=== PATIENT | male | born 1940 | race Caucasian/White ===

== ENCOUNTER 2020-10-14 15:21 | Outpatient (CLI) | payer MEDICARE, OTHER, SELFPAY ==
[2020-10-14 15:53] LABS: Alanine Aminotransferase 21 U/L (4-50); Aspartate Amino Transferase 30 U/L (17-59)
== END 2020-10-14 15:22 | disposition home or self-care (01) ==
LOC: ANHLAB 15:27
PROVIDERS: PCP Family Medicine; Visit Provider Podiatrist Foot & Ankle Surgery
DX: B35.1 Tinea unguium (principal)
CPT/HCPCS: 36415; 84450; 84460

== ENCOUNTER 2021-01-25 10:55 | Emergency (ER) | payer MEDICARE, OTHER, SELFPAY ==
[2021-01-25 10:59] VITALS: BP 168/88; PULSE 77; RESP 20; TEMP 36.6; O2SAT 99
[2021-01-25 11:05] VITALS: BP 168/88; PULSE 77; RESP 20; TEMP 36.6; O2SAT 99
--- NOTE | 2021-01-25 13:47 | ED.EYEPROB ---
HPI - Eye Problem General Chief complaint: Eye Problems Stated complaint: SCRATCHED EYE Time Seen by Provider: 01/25/21 11:12 Source: patient and RN notes reviewed Mode of arrival: ambulatory Limitations: no limitations History of Present Illness HPI Narrative: Patient presents today complaining of a red irritated eye and possible foreign body sensation when he woke up this morning. Denies vision changes, pain. He did not do anything yesterday that he remembers could have gotten into his eye. When he went to bed last night he did not feel anything in his eye. He does not wear contacts. He has tried flushing and eowo-lct-[id number] eyedrops without relief. chief complaint: eye redness and foreign body Related Data Home Medications Medication Instructions Recorded Confirmed carvedilol 01/25/21 lisinopril-hydrochlorothiazide tablet 01/25/21 warfarin 01/25/21 Allergies Allergy/AdvReac Type Severity Reaction Status Date / Time No Known Allergies Allergy Mild Verified 01/25/21 11:01 Review of Systems Review of Systems: Narrative: CONSTITUTIONAL: Denies body aches, fever, chills, or sweats. EYES: Denies visual changes, or discharge. + Irritation and slight redness with foreign body sensation to the right eye ENT: Denies rhinorrhea, congestion, sore throat, or otalgia. CARDIOVASCULAR: Denies chest pain, palpitations, or edema. RESPIRATORY: Denies cough or dyspnea. GASTROINTESTINAL: Denies abdominal pain, nausea, vomiting, or diarrhea. GENITOURINARY: Denies dysuria or hematuria. SKIN: Denies rash, itching, or wounds. MUSCULOSKELETAL: Denies back pain, joint pain, or myalgia. NEUROLOGIC: Denies headache, numbness, tingling, or weakness. PSYCH: Denies depression or anxiety. PMFSH Social History Social History Smoking status: Never smoker Second hand tobacco smoke exposure: No Alcohol intake: never Comments At time of signature, I have reviewed and agree with nursing past medical, surgical, social and family history unless otherwise noted. Please see nursing chart for further information. There is no relevant family history pertinent to the presenting complaint Exam Narrative: Exam Narrative: GENERAL: Well-appearing, well-nourished, and in no acute distress. HEAD: Normocephalic, atraumatic. EYES: EOMI. PERRL. Right eye: Very mildly injected. Large area of fluorescein uptake in the center of the pupil extending into the iris. This fluorescein uptake measures at least 1 cm across by approximately 0.5 cm vertically. See procedure note. Lids and lashes normal. See procedure note. Left eye normal ENT: Mucous membranes pink and moist. NECK: Normal AROM. CHEST: No respiratory distress. EXTREMITIES: Normal range of motion. No edema. SKIN: Warm, dry, no rash. Capillary refill normal. Normal skin turgor. NEURO: No focal deficits. Alert and oriented x3. Gait steady. PSYCH: Normal affect. No signs of depression or anxiety. Course Vital Signs Vital signs: Vital Signs Temperature 97.9 F 01/25/21 10:59 Pulse Rate 77 01/25/21 10:59 Respiratory Rate 20 01/25/21 10:59 Blood Pressure 168/88 H 01/25/21 10:59 Pulse Oximetry 99 01/25/21 10:59 Temperature 97.9 F 01/25/21 11:05 Pulse Rate 77 01/25/21 11:05 Respiratory Rate 20 01/25/21 11:05 Blood Pressure 168/88 H 01/25/21 11:05 Pulse Oximetry 99 01/25/21 11:05 Reviewed. Pt has been instructed to follow up with his PCP regarding his elevated blood pressure today. Procedures Other Procedure Procedure 1: Other Procedure: Right eye was anesthetized with 1 drop of tetracaine and anesthesia was achieved. The eye was flushed with eye wash. Lid was inverted and examined. Moistened Qtip was used to sweep underneath the upper eyelid with 0 foreign bodies resulting. Cornea was dyed with fluorescein and 1 large abrasions or ulcerations were noted in the center of the pupil. Pt tolerated procedure well. [facility] - Eye Probl
== END 2021-01-25 12:00 | disposition home or self-care (01) ==
PROVIDERS: Emergency Provider Nurse Practitioner; PCP Family Medicine
DX: H16.001 Unspecified corneal ulcer, right eye (principal); I48.91 Unspecified atrial fibrillation; I10 Essential (primary) hypertension; N40.0 Benign prostatic hyperplasia without lower urinary tract symptoms; Z96.643 Presence of artificial hip joint, bilateral; Z98.42 Cataract extraction status, left eye; Z98.41 Cataract extraction status, right eye
CPT/HCPCS: 99213; A9270; G0463

== ENCOUNTER 2021-03-03 14:42 | Outpatient (CLI) | payer MEDICARE, OTHER, SELFPAY ==
[2021-03-03 15:23] LABS: Alanine Aminotransferase 19 U/L (4-50); Aspartate Amino Transferase 29 U/L (17-59)
== END 2021-03-03 14:43 | disposition home or self-care (01) ==
PROVIDERS: PCP Family Medicine; Visit Provider Podiatrist Foot & Ankle Surgery
DX: B35.1 Tinea unguium (principal)
CPT/HCPCS: 36415; 84450; 84460

== ENCOUNTER 2021-03-25 10:48 | Outpatient (CLI) | payer MEDICARE, OTHER, SELFPAY ==
[2021-03-25 11:21] LABS: Alanine Aminotransferase 22 U/L (4-50); Albumin Level 3.9 g/dL (3.5-5.1); Alkaline Phosphatase 51 U/L (38-126); Anion Gap 7 mmol/L (8-16); Aspartate Amino Transferase 21 U/L (17-59); Bilirubin,Total 0.6 mg/dL (0.2-1.3); Blood Urea Nitrogen 20 mg/dL (9-20); Carbon Dioxide 31 mmol/L (22-30); Chloride 101 mmol/L (98-107); Estimated Glomerular Filt Rate > 60; Glucose 142 mg/dL (65-110); Potassium 4.2 mmol/L (3.4-5.0); Sodium 139 mmol/L (137-145); Uric Acid 8.1 mg/dL (3.5-8.5)
== END 2021-03-25 10:49 | disposition home or self-care (01) ==
LOC: ANHLAB 10:50
PROVIDERS: PCP Family Medicine; Visit Provider Podiatrist Foot & Ankle Surgery
DX: M10.9 Gout, unspecified (principal)
CPT/HCPCS: 36415; 80053; 84550

== ENCOUNTER 2021-05-17 09:37 | Outpatient (CLI) | payer MEDICARE, OTHER, SELFPAY ==
[2021-05-17 11:02] LABS: Prostate Specific Antigen 5.4 ng/mL (< OR = 4.0)
== END 2021-05-17 09:38 | disposition home or self-care (01) ==
LOC: ANHLAB 09:43
PROVIDERS: PCP Family Medicine
DX: Z12.5 Encounter for screening for malignant neoplasm of prostate (principal); R97.20 Elevated prostate specific antigen [PSA]
CPT/HCPCS: 36415; 84153; G0103

== ENCOUNTER 2021-12-06 11:38 | Outpatient (CLI) | payer MEDICARE, OTHER, SELFPAY ==
[2021-12-06 12:16] LABS: Basophils Absolute Auto 0.1 K/mm3 (0.0-0.1); Basophils Percent Auto 0.9 % (0.2-1.2); Eosinophils Absolute Auto 0.2 K/mm3 (0-0.3); Eosinophils Percent Auto 3.6 % (0-4.4); Hematocrit 41.7 % (42.0-52.0); Hemoglobin 13.9 g/dL (14.0-18.0); Immature Granulocyte Absolute 0.02 K/mm3 (0.00-0.031); Immature Granulocyte Percent A 0.3 % (0-0.5); Lymphocytes Absolute Auto 1.75 K/mm3 (0.9-3.2); Lymphocytes Percent Auto 27.3 % (18.3-44.2); Mean Corpuscular HGB Conc 33.3 g/dl (32-36); Mean Corpuscular Hemoglobin 30.2 pg (26-34); Mean Corpuscular Volume 90.7 fl (80-100); Mean Platelet Volume 11.7 fl (7.4-10.4); Monocytes Absolute Auto 0.8 K/mm3 (0.1-0.6); Monocytes Percent Auto 11.7 % (2.6-8.5); Neutrophils Absolute Auto 3.6 K/mm3 (1.3-6.7); Neutrophils Percent Auto 56.2 % (45.5-73.1); Platelet Count Result 172 k/mm3 (150-375); Red Cell Distribution Width 13.3 % (11.5-14.5); White Blood Count 6.4 K/mm3 (4.5-10.0)
[2021-12-06 12:32] LABS: Anion Gap 8 mmol/L (8-16); Blood Urea Nitrogen 15 mg/dL (9-20); Calcium 8.6 mg/dL (8.4-10.2); Carbon Dioxide 30 mmol/L (22-30); Chloride 102 mmol/L (98-107); Cholesterol 190 mg/dL (0-200); Estimated Glomerular Filt Rate > 60; Glucose 96 mg/dL (65-110); HDL Direct 35 mg/dL; Potassium 3.7 mmol/L (3.4-5.0); Sodium 140 mmol/L (137-145); Triglycerides 105 mg/dL (<150)
[2021-12-06 12:43] LABS: LDL Cholesterol Direct 99 mg/dL
== END 2021-12-06 11:39 | disposition home or self-care (01) ==
LOC: ANHLAB 11:42
PROVIDERS: PCP Family Medicine; Visit Provider Physician Assistant Medical
DX: I10 Essential (primary) hypertension (principal); Z13.220 Encounter for screening for lipoid disorders
CPT/HCPCS: 36415; 80048; 80061; 84443; 85025

== ENCOUNTER 2022-02-24 13:38 | Outpatient (CLI) | payer MEDICARE, OTHER, SELFPAY ==
[2022-02-24 13:58] LABS: Basophils Absolute Auto 0.1 K/mm3 (0.0-0.1); Eosinophils Absolute Auto 0.2 K/mm3 (0-0.3); Eosinophils Percent Auto 3.2 % (0-4.4); Hemoglobin 13.3 g/dL (14.0-18.0); Immature Granulocyte Absolute 0.03 K/mm3 (0.00-0.031); Immature Granulocyte Percent A 0.4 % (0-0.5); Lymphocytes Absolute Auto 2.36 K/mm3 (0.9-3.2); Lymphocytes Percent Auto 33.2 % (18.3-44.2); Mean Corpuscular HGB Conc 33.3 g/dl (32-36); Mean Corpuscular Hemoglobin 30.1 pg (26-34); Mean Corpuscular Volume 90.5 fl (80-100); Mean Platelet Volume 11.1 fl (7.4-10.4); Monocytes Absolute Auto 0.7 K/mm3 (0.1-0.6); Monocytes Percent Auto 10.4 % (2.6-8.5); Neutrophils Absolute Auto 3.7 K/mm3 (1.3-6.7); Neutrophils Percent Auto 51.8 % (45.5-73.1); Platelet Count Result 166 k/mm3 (150-375); Red Blood Count 4.42 M/mm3 (4.6-6.20); Red Cell Distribution Width 13.5 % (11.5-14.5); White Blood Count 7.1 K/mm3 (4.5-10.0)
== END 2022-02-24 13:39 | disposition home or self-care (01) ==
PROVIDERS: PCP Family Medicine; Visit Provider Physician Assistant Medical
DX: D64.9 Anemia, unspecified (principal)
CPT/HCPCS: 36415; 85025

== ENCOUNTER 2022-03-31 14:34 | Outpatient (CLI) | payer MEDICARE, OTHER, SELFPAY ==
[2022-03-31 15:27] LABS: Iron 77 ug/dL (49-181)
[2022-03-31 15:36] LABS: Percent Iron Saturation 19 % (20-50)
== END 2022-03-31 14:35 | disposition home or self-care (01) ==
LOC: ANHLAB 14:36
PROVIDERS: PCP Family Medicine; Visit Provider Physician Assistant Medical
DX: D64.9 Anemia, unspecified (principal)
CPT/HCPCS: 36415; 83540; 83550

== ENCOUNTER 2022-05-06 11:16 | Outpatient (CLI) | payer MEDICARE, OTHER, SELFPAY ==
[2022-05-06 15:25] LABS: Prostate Specific Antigen 6.4 ng/mL (< OR = 4.0)
== END 2022-05-06 11:17 | disposition home or self-care (01) ==
PROVIDERS: PCP Family Medicine; Referring Provider Urology; Visit Provider Urology
DX: Z12.5 Encounter for screening for malignant neoplasm of prostate (principal)
CPT/HCPCS: 36415; 84153; G0103

== ENCOUNTER 2022-09-23 14:07 | Emergency (ER) | payer MEDICARE, OTHER, SELFPAY ==
[2022-09-23 14:19] VITALS: BP 121/61; PULSE 91; RESP 16; TEMP 37; O2SAT 98
--- NOTE | 2022-09-23 14:41 | ED.GENADULT ---
HPI - General Adult General Chief complaint: Upper Respiratory Infection Stated complaint: cov positive Time Seen by Provider: 09/23/22 14:30 Source: patient Mode of arrival: ambulatory Limitations: no limitations History of Present Illness HPI narrative: Patient presents today complaining of body aches, fatigue, rhinorrhea, and decreased appetite since yesterday. Denies fever, cough, congestion, or any additional symptoms. He tested positive for COVID-19 at home today. He has been taking Tylenol with some relief. Takes Coumadin for AFib. He has been vaccinated for COVID-19. Related Data Home Medications Medication Instructions Recorded Confirmed carvedilol 25 mg tablet 25 mg PO BID 01/25/21 09/23/22 warfarin 3 mg tablet 3 mg PO DAILY 01/25/21 09/23/22 lisinopril 20 2 tablet PO DAILY 11/30/21 09/23/22 mg-hydrochlorothiazide 12.5 mg tablet Allergies Allergy/AdvReac Type Severity Reaction Status Date / Time No Known Allergies Allergy Mild Verified 09/23/22 14:45 Review of Systems Review of Systems: CONSTITUTIONAL: Denies body aches, fever, chills, or sweats.+ fatigue, body aches EYES: Denies visual changes, redness, or discharge. ENT: Denies congestion, sore throat, or otalgia.+ rhinorrhea CARDIOVASCULAR: Denies chest pain, palpitations, or edema. RESPIRATORY: Denies cough or dyspnea. GASTROINTESTINAL: Denies abdominal pain, nausea, vomiting, or diarrhea.+ decreased appetite GENITOURINARY: Denies dysuria or hematuria. SKIN: Denies rash, itching, or wounds. MUSCULOSKELETAL: Denies back pain, joint pain, or myalgia. NEUROLOGIC: Denies headache, numbness, tingling, or weakness. PSYCH: Denies depression or anxiety. [facility] Past Medical History Medical History BMI greater than 30 Surgical History Surgical History History of hernia surgery History of hip replacement Family History Family History Father No problems noted. 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 Please see nursing chart for further information. There is no relevant family history pertinent to the presenting complaint Exam Narrative: GENERAL: Well-appearing, well-nourished, and in no acute distress. HEAD: Normocephalic, atraumatic. EYES: EOMI. No redness or drainage. Conjunctivae normal. ENT: Mucous membranes pink and moist. Nares clear. No rhinorrhea. TMs normal bilaterally. Throat normal. Uvula midline. NECK: Normal AROM. Supple. No lymphadenopathy. CHEST: No respiratory distress. Clear to auscultation. HEART: Regular rate and rhythm. No murmur appreciated. Normal peripheral pulses. EXTREMITIES: Normal range of motion. No edema. SKIN: Warm, dry, no rash. Capillary refill normal. Normal skin turgor. NEURO: No focal deficits. Alert and oriented x3. Gait steady. PSYCH: Normal affect. No signs of depression or anxiety. Course Course Level of Care: Express Care Visit Vital Signs Vital signs: Vital Signs Temperature 98.6 F 09/23/22 14:19 Pulse Rate 91 09/23/22 14:19 Respiratory Rate 16 09/23/22 14:19 Blood Pressure 121/61 09/23/22 14:19 Pulse Oximetry 98 09/23/22 14:19 Temperature 98.6 F 09/23/22 14:19
== END 2022-09-23 14:51 | disposition home or self-care (01) ==
PROVIDERS: Emergency Provider Nurse Practitioner
DX: U07.1 COVID-19 (principal); I48.91 Unspecified atrial fibrillation; Z79.01 Long term (current) use of anticoagulants; N40.0 Benign prostatic hyperplasia without lower urinary tract symptoms; Z96.643 Presence of artificial hip joint, bilateral; Z98.42 Cataract extraction status, left eye; Z98.41 Cataract extraction status, right eye
CPT/HCPCS: 99213; G0463

== ENCOUNTER 2023-05-09 10:43 | Outpatient (CLI) | payer MEDICARE, OTHER, SELFPAY ==
[2023-05-09 12:01] LABS: Prostate Specific Antigen 6.4 ng/mL (< OR = 4.0)
== END 2023-05-09 10:44 | disposition home or self-care (01) ==
PROVIDERS: PCP Family Medicine
DX: R97.20 Elevated prostate specific antigen [PSA] (principal)
CPT/HCPCS: 36415; 84153

== ENCOUNTER 2024-01-12 09:43 | Outpatient (CLI) | payer MEDICARE, OTHER, SELFPAY ==
[2024-01-12 10:18] LABS: Basophils Absolute Auto 0.1 K/mm3 (0.0-0.1); Basophils Percent Auto 0.8 % (0.2-1.2); Eosinophils Absolute Auto 0.2 K/mm3 (0-0.3); Eosinophils Percent Auto 2.4 % (0-4.4); Hematocrit 35.1 % (42.0-52.0); Hemoglobin 11.4 g/dL (14.0-18.0); Immature Granulocyte Absolute 0.02 K/mm3 (0.00-0.031); Immature Granulocyte Percent A 0.3 % (0-0.5); Lymphocytes Absolute Auto 1.61 K/mm3 (0.9-3.2); Lymphocytes Percent Auto 22.7 % (18.3-44.2); Mean Corpuscular HGB Conc 32.5 g/dl (32-36); Mean Corpuscular Hemoglobin 29.8 pg (26-34); Mean Corpuscular Volume 91.9 fl (80-100); Mean Platelet Volume 11.6 fl (7.4-10.4); Monocytes Absolute Auto 0.7 K/mm3 (0.1-0.6); Monocytes Percent Auto 10.2 % (2.6-8.5); Neutrophils Absolute Auto 4.5 K/mm3 (1.3-6.7); Neutrophils Percent Auto 63.6 % (45.5-73.1); Platelet Count Result 185 k/mm3 (150-375); Red Blood Count 3.82 M/mm3 (4.6-6.20); Red Cell Distribution Width 13.7 % (11.5-14.5); White Blood Count 7.1 K/mm3 (4.5-10.0)
[2024-01-12 10:22] LABS: Alanine Aminotransferase 17 U/L (6-50); Albumin Level 4.2 g/dL (3.5-5.1); Alkaline Phosphatase 54 U/L (38-126); Anion Gap 6 mmol/L (4-12); Aspartate Amino Transferase 23 U/L (17-59); Bilirubin,Total 0.6 mg/dL (0.2-1.3); Blood Urea Nitrogen 22 mg/dL (9-20); Calcium 8.7 mg/dL (8.4-10.2); Carbon Dioxide 28 mmol/L (22-30); Chloride 107 mmol/L (98-107); Cholesterol 145 mg/dL (0-200); Estimated Glomerular Filt Rate > 60; Glucose 120 mg/dL (65-110); HDL Direct 36 mg/dL; Potassium 3.7 mmol/L (3.4-5.0); Sodium 141 mmol/L (137-145); Triglycerides 104 mg/dL (<150); Uric Acid 9.7 mg/dL (3.5-8.5)
[2024-01-12 10:32] LABS: LDL Cholesterol Direct 89 mg/dL
== END 2024-01-12 09:44 | disposition home or self-care (01) ==
PROVIDERS: PCP Family Medicine; Visit Provider Nurse Practitioner Adult Health
DX: M10.9 Gout, unspecified (principal); Z13.29 Encounter for screening for other suspected endocrine disorder; D64.9 Anemia, unspecified; I10 Essential (primary) hypertension
CPT/HCPCS: 36415; 80053; 80061; 84443; 84550; 85025

== ENCOUNTER 2024-01-24 16:39 | Outpatient (CLI) | payer MEDICARE, OTHER, SELFPAY ==
[2024-01-24 17:33] LABS: Basophils Absolute Auto 0.1 K/mm3 (0.0-0.1); Basophils Percent Auto 0.7 % (0.2-1.2); Eosinophils Absolute Auto 0.2 K/mm3 (0-0.3); Eosinophils Percent Auto 2.4 % (0-4.4); Hematocrit 35.9 % (42.0-52.0); Hemoglobin 11.2 g/dL (14.0-18.0); Immature Granulocyte Absolute 0.03 K/mm3 (0.00-0.031); Immature Granulocyte Percent A 0.4 % (0-0.5); Lymphocytes Absolute Auto 1.71 K/mm3 (0.9-3.2); Lymphocytes Percent Auto 20.8 % (18.3-44.2); Mean Corpuscular HGB Conc 31.2 g/dl (32-36); Mean Corpuscular Hemoglobin 29.1 pg (26-34); Mean Corpuscular Volume 93.2 fl (80-100); Mean Platelet Volume 11.4 fl (7.4-10.4); Monocytes Absolute Auto 0.7 K/mm3 (0.1-0.6); Monocytes Percent Auto 8.4 % (2.6-8.5); Neutrophils Absolute Auto 5.5 K/mm3 (1.3-6.7); Neutrophils Percent Auto 67.3 % (45.5-73.1); Platelet Count Result 208 k/mm3 (150-375); Red Blood Count 3.85 M/mm3 (4.6-6.20); Red Cell Distribution Width 13.8 % (11.5-14.5); White Blood Count 8.2 K/mm3 (4.5-10.0)
[2024-01-24 17:39] LABS: Uric Acid 9.9 mg/dL (3.5-8.5)
[2024-01-24 18:42] LABS: Iron 58 ug/dL (49-181)
[2024-01-24 18:53] LABS: Percent Iron Saturation 14 % (20-50)
== END 2024-01-24 16:40 | disposition home or self-care (01) ==
PROVIDERS: PCP Family Medicine; Visit Provider Nurse Practitioner Adult Health
DX: D64.9 Anemia, unspecified (principal); M10.9 Gout, unspecified
CPT/HCPCS: 36415; 83540; 83550; 84550; 85025

== ENCOUNTER 2024-02-15 12:56 | Outpatient (CLI) | payer MEDICARE, OTHER, SELFPAY ==
[2024-02-15 13:31] LABS: Uric Acid 8.9 mg/dL (3.5-8.5)
== END 2024-02-15 12:57 | disposition home or self-care (01) ==
LOC: ANHLAB 12:58
PROVIDERS: PCP Family Medicine; Visit Provider Nurse Practitioner Adult Health
DX: M10.9 Gout, unspecified (principal)
CPT/HCPCS: 36415; 84550

== ENCOUNTER 2024-05-27 11:29 | Outpatient (CLI) | payer MEDICARE, OTHER, SELFPAY ==
[2024-05-27 12:32] LABS: Prostate Specific Antigen 6.2 ng/mL (< OR = 4.0)
== END 2024-05-27 11:30 | disposition home or self-care (01) ==
PROVIDERS: PCP Family Medicine; Visit Provider Urology
DX: R97.20 Elevated prostate specific antigen [PSA] (principal)
CPT/HCPCS: 36415; 84153

== ENCOUNTER 2024-11-04 13:46 | Outpatient (CLI) | payer MEDICARE, OTHER, SELFPAY ==
--- NOTE | ~2024-11-04 | XR_ITS ---
EXAMINATION: XR foot RT 2V DATE: 11/04/2024 14:20 INDICATION: Right foot pain. Gout. TECHNIQUE: 2 views of right foot were obtained. COMPARISON: None. FINDINGS: Alignment is normal. No fracture. There is moderate osteoarthritis of first metatarsophalan geal joint and mild osteoarthritis of some of the interphalangeal joints and midfoot joints. There is moderate osteoarthritis of second and third distal interphalangeal joints. There is an enthesophyte at plantar aspect of calcaneal tuberosity. IMPRESSION: 1. Polyarticular osteoarthritis. Reviewed, dictated and finalized at location B.
[2024-11-04 14:42] LABS: Uric Acid 8.8 mg/dL (3.5-8.5)
--- OUTSIDE RECORDS SUMMARY | 2024-11-04 16:00 | XMS_ITS | Referral Summary ---
Author Organization [facility] [place] Address [address] [place] [address] Care Team Providers Care Certified Solid Waste Facility Operator Name Role Phone Chalo Barrera MD Primary Care Provider [phone] Source Comments [facility],non-owned Affiliates and Associated Physician Practices is amultiple site organization consisting of ambulatory clinics and hospital sitesin [place], [place], [place] and [place]. This disclosure is being madepursuant to the Care Everywhere program and may not contain all information available regarding this patient. Last updated 18.[facility] [place] Allergies No known active allergies Medications * Be aware that medications may not be up to date on this document. Alwaysverify current medications with the patient. Medication Sig Dispensed Refills Start Date End Date Status carvedilol (COREG) 25 MG tablet CARVEDILOL 25 MG ORAL TABLET 08/12/2019 Active lisinopril-hydroCHL OROthiazide (PRINZIDE; ZESTORETIC) 20-12.5 MG tablet LISINOPRIL-HYDROCHL OROTHIAZIDE 20-12.5 MG ORAL TABLET 08/09/2019 Active HYDROcodone-acetami nophen (NORCO) 5-325 MG tablet Take 1 (one) tablet to 2 (two) tablets by mouth every 6 hours as needed for Pain 30 tablet 06/10/2021 Active Additional Information Patient not taking.Reported on 06/24/2021 warfarin (COUMADIN) 3 MG tablet 06/14/2021 Active Active Problems Problem Noted Date Diagnosed Date Right inguinal hernia 06/10/2021 Immunizations Name Administration Dates Next Due Covid Pfizer primary monovalent 12+ yr 0.3mL Pur ple cap 05/18/2021 Social History Tobacco Use Types Packs/Day Years Used Date Smoking Tobacco: Never Smokeless Tobacco: Never Tobacco Cessation:Counseling Given: No Alcohol Use Standard Drinks/Week Comments Yes 0 (1 standard drink = 0.6 oz pur e alcohol) occ Sex and Gender Information Value Date Recorded Sex Assigned at Not on file Gender Identity Male 12/27/2020 11:02 AM CDT Sexual Orientation Not on file Last Filed Vital Signs Vital Sign Reading Time Taken Comments Blood Pressure 157/98 06/10/2021 2:15 PM CDT Pulse 68 06/10/2021 2:15 PM CDT Temperature 36.8 C (98.2 F) 06/10/2021 12:45 PM CDT Respiratory Rate 18 06/10/2021 2:15 PM CDT Oxygen Saturation 98% 06/10/2021 2:15 PM CDT Inhaled Oxygen Concentration - - Weight 93.4 kg (206 lb) 06/24/2021 9:55 AM CDT Height 180.3 cm (5' 11 ) 06/24/2021 9:55 AM CDT Body Mass Index 28.73 06/24/2021 9:55 AM CDT Plan of Treatment Not on file Medical Devices Implanted Type Area Business Development Officer Device Identifier Shelf Expiration Date Model / Serial / Lot Plug Srg 1.6in Groin Mfl Nabsb Prfx Implanted:Qty: 1 on 06/10/2021 by Joshua Vanegas MD at [facility] Mesh Right: Groin [employer] 01/22/2025 [id number] / / [id number] Care Teams Certified Solid Waste Facility Operator Relationship Specialty Start Date End Date Chalo Barrera MD [address] [place] [address] PCP - General Family Medicine 05/25/21
--- OUTSIDE RECORDS SUMMARY | 2024-11-04 16:00 | XMS_ITS | Clinical Summary ---
Author Organization [facility] Address [address] [place] [id number] Care Team Providers Care Hyperion Administrator Name Role Phone Chalo Barrera MD Primary Care Provider [phone] Allergies Active Allergy Reactions Criticality Noted Date Comments Venom-Honey Bee Swelling Medium 12/16/2022 Medications omeprazole (PriLOSEC) 20 mg capsule Take 2 capsules (40 mg total) by mouth daily 30 capsule 03/14/2021 Active oxyCODONE-aceta minophen (PERCOCET) 5-325 mg per tabletIndicatio ns:Pain Take 1 tablet by mouth every 6 (six) hours as needed for pain (1 tablet for mild to moderate pain or 2 tablets for severe pain) for up to 20 doses MAY CAUSE SEDATION . TAKE IT ONLY WHEN AT HOME. 20 tablet 03/14/2021 Active cephalexin (KEFLEX) 500 mg capsuleIndicati ons:Upper Respiratory/DARRELL NT Infection Take 1 capsule (500 mg total) by mouth 2 (two) times a day 14 capsule 12/12/2022 Active loratadine (CLARITIN) 10 mg tabletIndicatio ns:Allergic Rhinitis Take 1 tablet (10 mg total) by mouth daily 30 tablet 12/12/2022 Active carvediloL (COREG) 25 mg tablet 12/13/2022 Active lisinopril-hydr oCHLOROthiazide (ZESTORETIC) 20-12.5 mg per tablet 12/13/2022 Active warfarin (COUMADIN) 3 mg tablet TAKE 1 TABLET BY MOUTH ONCE DAILY IN THE EVENING EXCEPT ON SUNDAYS TAKE 1 1/2 (ONE-HALF) TABLETS 11/18/2022 Active Active Problems Problem Noted Date Diagnosed Date Abnormal electrocardiogram (ECG) (EKG) 12/12/2022 Essential (primary) hypertension 12/12/2022 12/12/2022 Hypertensive heart disease without heart failure 12/12/2022 12/12/2022 Aortic stenosis, mild 09/20/2021 12/12/2022 Right inguinal hernia 06/10/2021 12/12/2022 Osteoarthritis of hip 11/17/2015 Need for prophylactic antibiotic 11/17/2015 Osteoarthritis of left hip 03/20/2015 Cardiomegaly 04/19/2012 12/12/2022 Unspecified atrial fibrillation 08/28/1959 12/12/2022 Medical History Medical History Date Comments Hypertension Family History Medical History Relation Name Comments Cancer Brother Family history of malignant neoplasm - (Added by TW Conv) Cancer Mother Family history of malignant neoplasm - (Added by TW Conv) Diabetes Mother Family history of diabetes mellitus - (Added by TW Conv) Stroke Mother Family history of cerebrovascular accident - (Added by TW Conv) Relation Name Status Comments Brother Mother Social History Tobacco Use Types Packs/Day Years Used Date Smoking Tobacco: Never Tobacco Cessation:Counseling Given: Not Answered Personal Safety Answer Date Recorded Getting School Help Needed Not on file 01/27 Sex and Gender Information Value Date Recorded Sex Assigned at Not on file Legal Sex Male 11:09 AM 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 OFFICER Gender Identity Not on file Sexual Orientation Not on file Obstetrics History Last Filed Vital Signs Vital Sign Reading Time Taken Comments Blood Pressure 154/76 12/12/2022 2:15 PM CDT Pulse 85 12/12/2022 2:15 PM CDT Temperature 37 C (98.6 F) 12/12/2022 1:35 PM CDT Respiratory Rate 12 12/12/2022 2:15 PM CDT Oxygen Saturation 98% 12/12/2022 2:15 PM CDT Inhaled Oxygen Concentration - - Weight 102.2 kg (225 lb 3.2 oz) 12/16/2022 1:16 PM CDT Height 180.3 cm (5' 11 ) 12/16/2022 1:16 PM CDT Body Mass Index 31.41 12/16/2022 1:16 PM CDT Plan of Treatment Health Maintenance Due Date Last Done Comments Depression Screening 1942 Fall Risk Assessment 1942 DTaP/Tdap/Td Vaccine (1 - Tdap) 1953 Hepatitis B Screening 01/30/1960 Zoster Vaccine (1 of 2) 01/30/1992 Well Visit 65+ 2007 Influenza Vaccine (#1) 2024 0, 06/28/2019, 05/31/2018, Additional history exists Pneumococcal vaccine 65+ Completed 05/31/2018, 04/28 Insurance [employer] [place] [address] [employer] Member Subscriber Plan / Payer ( fective 2021-Present) Name:Gaston Oh Relation to Subscriber:Self Name:Gaston Oh Payer ID:[id number] Type:COMMERCIAL Address: [address] [place] MEDICARE MEDICARE [employer] [facility] [employer] Member Subscriber Plan / Payer (Ef fective 2017-Present) Name:Gaston Oh R Relation to Subscriber:Self Name:Gaston Oh Tony Payer ID:[id number] Type:COMMERCIAL Address: [address] [place] Care Teams Hyperion Administrator Relationship Specialty Start Date End Date Chalo Barrera MD PCP - General Family Medicine 12/12/22
--- OUTSIDE RECORDS SUMMARY | 2024-11-04 16:00 | XMS_ITS | Patient Health Summary ---
Author Organization [facility] Address [address] [place] [address] Care Team Providers Care House Wirer Helper Name Role Phone Chalo Barrera MD Primary Care Provider [phone] Note from [facility],non-owned Affiliates and Associated Physician Practices is amultiple site organization consisting of ambulatory clinics and hospital sitesin [place], [place], [place] and [place]. This disclosure is being madepursuant to the Care Everywhere program and may not contain all information available regarding this patient. Last updated 18.[facility] Allergies No known active allergies Medications * Be aware that medications may not be up to date on this document. Alwaysverify current medications with the patient. * carvedilol (COREG) 25 MG tablet(Started 08/12/2019) CARVEDILOL 25 MG ORAL TABLET * lisinopril-hydroCHLOROthiazide (PRINZIDE; ZESTORETIC) 20-12.5 MG tablet (Started 08/09/2019) LISINOPRIL-HYDROCHLOROTHIAZIDE 20-12.5 MG ORAL TABLET * HYDROcodone-acetaminophen (NORCO) 5-325 MG tablet(Started 06/10/2021) Take 1 (one) tablet to 2 (two) tablets by mouth every 6 hours as needed for Pain * warfarin (COUMADIN) 3 MG tablet(Started 06/14/2021) Active Problems Problem Noted Date Diagnosed Date Right inguinal hernia 06/10/2021 Immunizations * Covid Pfizer primary monovalent 12+ yr 0.3mL Purple cap(Given 05/18/2021) Social History Tobacco Use Types Packs/Day Years [...] Mass Index 28.73 06/24/2021 9:55 AM CDT Medical Devices Implanted Type Area Manager Client Service Device Identifier Shelf Expiration Date Model / Serial / Lot Plug Srg 1.6in Groin Mfl Nabsb Prfx Implanted:Qty: 1 on 06/10/2021 by Joshua Vanegas MD at [facility] Mesh Right: Groin [employer] 01/22/2025 [id number] / / [id number] Procedures * ENDOTRACHEAL TUBE NOTE(Performed 06/10/2021) * REPAIR INGUINAL HERNIA(Performed 06/10/2021) * EKG 12-LEAD(Performed 06/10/2021) Performed for Preop examination * PT-INR(Performed 06/10/2021) Performed for Preop examination * BASIC METABOLIC PANEL (CALCIUM TOTAL)(Performed 06/10/2021) Performed for Preop examination * STREP A SCREEN - POINT OF CARE (AMB) STL(Performed 12/27/2020) Performed for Acute pharyngitis, unspecified etiology * CULTURE RESPIRATORY UPPER(Performed 12/27/2020) Performed for Acute pharyngitis, unspecified etiology * DERMATOPATHOLOGY(Performed 08/03/2017) * DERMATOPATHOLOGY(Performed 12/21/2016) * DERMATOPATHOLOGY(Performed 04/13/2016) * DERMATOPATHOLOGY(Performed 01/12/2012) Results * ETT LINE PERFORMABLE (06/10/2021 11:44 AM CDT) Lory Rendon APRN-FLOOR NURSE - 06/10/2021 11:44 AM CDT Lory Montoya APRN-CRNA 06/10/2021 11:46 AM Endotracheal Tube Placement: Patient Location: OR. Intubation Event Date/Time: 06/10/2021 11:38 AM Procedure: intubation (76053). Procedure Section: Sedation: under general anesthesia. Indications for Airway Management: anesthesia Induction: standard IV Patient Position: sniffing Mask Ventilation: easy with oral airway. Blade Type: Sean Blade Size: 4 Laryngoscopy View: grade 1 (full cords) Intubation Adjuncts: stylet Tube: endotracheal tube Placement: oral Tube type: cuff - inflated Tube Size (FR): 8 Depth of Insertion (CM): 23 Measured From: lips Cuff volume (mL): 10 Cuff Inflated With: air Number of Attempts: 1. Placement Verified By: bilateral breath sounds, direct visualization, chest auscultation and CO2 monitor Tube secured with: adhesive tape. Dentition unchanged? Yes Difficult Airway? No. Procedure Start Time: 06/10/2021 11:38 AM. Procedure End Time: 06/10/2021 11:46 AM. Procedure Total Time: 8.03 minutes. Staff Section Anesthesia Provider: Lory Montoya APRN-CRNA, Performed the procedure Carlos Neff MD GENERAL ANESTHESIA O RDERABLES * EKG 12-LEAD (06/10/2021 9:24 AM CDT) Ventricular Rate 74 BPM [facility] Atrial Rate 108 BPM [facility] QRS Duration ms 142 ms [facility] Q-T Interval ms 444 ms [facility] QTC Calculation (Bezet) 492 ms [facility] Calculated R [place] -55 degrees [facility] Calculated T [place] -30 degrees [facility] Interpretation EKG Atrial fibrillation Right bundle branch block Left anterior fascicular block Bifascicular block Abnormal ECG When compared with ECG of 21-MAY-2008 07:39, Vent. rate has decreased BY 55 BPM Confirmed by RANCHO MARTINES, GABRIEL ALFONSO ([id number]) on 06/10/2021 3:29:31 PM [facility] 06/10/2021 9:24 AM CDT 06/10/2021 3:29 PM CDT Yakelin Mercado DO ECG ORDERABLES Performing Organization Address [facility] Co de Phone Number [facility] * PT-INR (06/10/2021 9:23 AM CDT) PT 13.8 12.1 - 14.8 sec 06/10/2021 9:55 AM CDT [facility] INR 1.1 0.9 - 1.1 06/10/2021 9:55 AM CDT [facility] Blood BLOOD SPECIMEN / Unknown Venipuncture / Unknown 06/10/2021 9:23 AM CDT 06/10/2021 9:43 AM CDT Narrative [facility] - 06/10/2021 9:55 AM CDT Conventional Warfarin Anticoagulant Therapy: INR Reference Range: 2.0-3.0 Intensive Warfarin Anticoagulant Therapy: INR Reference Range: 2.5-3.5 Yakelin Mercado DO LAB - COAGULATION OR DERABLES Performing Organization Address [facility] de Phone Number [facility] [address] [id number] * (ABNORMAL) BASIC METABOLIC PANEL (CALCIUM TOTAL) (06/10/2021 9:23 AM CDT) Glucose 124(H) 70 - 105 mg/dL 06/10/2021 9:59 AM CDT [facility] Sodium 141 136 - 145 mmol/L 06/10/2021 9:59 AM CDT [facility] Potassium 3.5 3.5 - 5.1 mmol/L 06/10/2021 9:59 AM CDT [facility] Chloride 103 98 - 107 mmol/L 06/10/2021 9:59 AM CDT [facility] CO2 26 23 - 31 mmol/L 06/10/2021 9:59 AM CDT [facility] Calcium 9.3 8.4 - 10.4 mg/dL 06/10/2021 9:59 AM CDT [facility] Anion Gap 12 8 - 18 mmol/L 06/10/2021 9:59 AM CDT [facility] BUN 13 8.4 - 25.7 mg/dL 06/10/2021 9:59 AM CDT [facility] Creatinine 1.00 0.72 - 1.25 mg/dL 06/10/2021 9:59 AM CDT [facility] eGFR by MDRD >60 mL/min/1.7 3m2 06/10/2021 9:59 AM CDT [facility] eGFR by MDRD >60 mL/min/1.7 3m2 06/10/2021 9:59 AM CDT [facility] Blood BLOOD SPECIMEN / Unknown Venipuncture / Unknown 06/10/2021 9:23 AM CDT 06/10/2021 9:43 AM CDT Yakelin Mercado DO LAB - CHEMISTRY DANNY GRAY [facility] [address] [place] [address] * STREP A SCREEN - POINT OF CARE (AMB) STL (12/27/2020 2:07 PM CDT) Strep A Rapid POCT Negative Negative [facility] Strep A Internal Control Present [facility] Lot # [id number] [facility] Expiration Date 08 27 2021 [facility] Throat ENTIRE THROAT (SURFACE REGION OF NECK) / Unknown 12/27/2020 2:07 PM CDT Mae Simmons APRN-RAIL TRANSPORTATION OPERATOR LAB - POINT OF CA RE ORDERABLES [facility] [address] [phone] * CULTURE RESPIRATORY UPPER (12/27/2020 2:06 PM CDT) Upper Respiratory Culture Final report [facility] INSURANCE BILL Result 1 [facility] INSURANCE BILL Comment:Routine respiratory jayden Microbiology ENTIRE THROAT (SURFACE REGION OF NECK) / Unknown 12/27/2020 2:06 PM CDT 12/28/2020 Narrative Resulting Agency Comment Lab Testing performed at: [facility] [place] [address] [id number] Mae Simmons APRN-RAIL TRANSPORTATION OPERATOR LAB - MICROBIOLOG Y ORDERABLES [facility] INSURANCE BILL [address] [place] [address] * PATHOLOGY TISSUE FOR DERMATOLOGY (08/03/2017 12:00 AM [employer]) Only the most recent of4 resultswithin the time period is included. Result CASE: [id number] PATIENT: GASTON OH PATHOLOGIC DIAGNOSIS: Sternum: LICHEN PLANUS-LIKE KERATOSIS (BENIGN LICHENOID KERATOSIS) NOT PRESENT AT SAMPLED MARGIN CLINICAL DATA: R/O BCC. Check margins. GROSS DESCRIPTION: Received is one formalin filled container labeled with the patients name and designated upper midline sternum. The specimen consists of a curettage desiccation measuring [id number]. The margin is inked green. Jar 0. MICROSCOPIC DESCRIPTION: The epidermis is mildly acanthotic. There is a lichenoid infiltrate with vacuolar changes of basilar keratinocytes and scattered necrotic keratinocytes. This lesion is not present at the sampled margin of the specimen. Electronically signed out by Chioma Rodas M.D. 08/07/2017 1:16:27PM [facility] Comment: Performed at: Dermatopathology Laboratory [facility] - Department of Dermatology [address] [place] [address] [place] [address] Phone number: [phone] FAX: [phone] 08/03/2017 08/04/2017 Stephen Arnett MD LAB - PATHOLOGY/CYTO LOGY ORDERABLES Performing Organization Address City/[facility]/ZIP Co de Phone Number [facility] [address] [place] [address]. 5th Floor Lab [address] [phone] Care Teams House Wirer Helper Relationship Specialty Start Date End Date Chalo Barrera MD [address] [place] [address] PCP - General Family Medicine 05/25/21
--- OUTSIDE RECORDS SUMMARY | 2024-11-04 16:00 | XMS_ITS | Clinical Summary ---
Author Organization [facility] Address [address] [place] [address] Care Team Providers Care Upper Leather Cutter Name Role Phone Chalo Barrera MD Primary Care Provider [phone] Source Comments [facility],non-owned Affiliates and Associated Physician Practices is amultiple site organization consisting of ambulatory clinics and hospital sitesin [place], [place], [place]. This disclosure is being madepursuant to the Care Everywhere program and may not contain all information available regarding this patient. Last updated 18.[facility] Allergies No known active allergies Medications * [...] 12+ yr 0.3mL Pur ple cap 05/18/2021 Family History Medical History Relation Name Comments Diabetes - Type 2 Father Relation Name Status Comments Father Social History Tobacco Use Types Packs/Day Years [...] 06/24/2021 9:55 AM CDT Plan of Treatment Health Maintenance Due Date Last Done Comments MEDICARE AWV 12 MONTHS 1942 DTAP/TDAP/TD VACCINES (1 - Tdap) 1961 PNEUMOCOCCAL VACCINE 50+ (1 of 1 - PCV) 01/30/1992 ZOSTER VACCINE (1 of 2) 01/30/1992 Respiratory Syncytial Virus (RSV) Vaccine Pt: or over 60 yrs (1 - 1-dose 75+ series) 2017 COVID-19 VACCINE (3 - 2023-2 5 season) 2024 06/08/2021, 05/18/2021 INFLUENZA VACCINE (#1) 2024 , 06/03/2020 DEPRESSION SCREENING 08/28/2024 HEPATITIS B VACCINE Aged Out No longe r eligible based on patient's age to complete this topic HIB VACCINE Aged Out No longer eligi ble based on patient's age to complete this topic HPV VACCINE Aged Out No longer eligi ble based on patient's age to complete this topic MENINGOCOCCAL (Group B) VACCINE Aged Out No longer eligible b ased on patient's age to complete this topic MENINGOCOCCAL VACCINE Aged Out No dawn kamar eligible based on patient's age to complete this topic Medical Devices Implanted Type Area Loose Hand Packer Device Identifier Shelf Expiration Date Model / Serial / Lot Plug Srg 1.6in Kenia Mfl Nabsb Prfx Implanted:Qty: 1 on 06/10/2021 by Joshua Vanegas MD at [facility] Mesh Right: [employer] 01/22/2025 [id number] / / [id number] Care Teams Upper Leather Cutter Relationship Specialty Start Date End Date Chalo Barrera MD [address] [place] [address] PCP - General Family Medicine 05/25/21
--- OUTSIDE RECORDS SUMMARY | 2024-11-04 16:00 | XMS_ITS | Referral Summary ---
Author Organization [facility] Address [address] [place] [address] Care Team Providers Care Shank Cementer Hand Name Role Phone Chalo Barrera MD Primary Care Provider [phone] Allergies Active Allergy Reactions Criticality Noted Date [...] 04/19/2012 12/12/2022 Unspecified atrial fibrillation 08/28/1957 12/12/2022 Social History Tobacco Use Types Packs/Day Years Used Date Smoking Tobacco: Never Tobacco Cessation:Counseling Given: Not Answered Personal Safety Answer Date Recorded Getting School Help Needed Not on file 01/27 Sex and Gender Information Value Date Recorded Sex Assigned at Not on file 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 Gender Identity Not on file Sexual Orientation Not on file Last Filed [...] 12/16/2022 1:16 PM CDT Plan of Treatment Not on file Insurance [facility] [place] MEDICARE [facility] [place] Member Subscriber Plan / Payer ( fective 2021-Present) Name:Gaston Oh R Relation to Subscriber:Self Name:Gaston Oh Payer ID:[id number] Type:COMMERCIAL Address: [facility] [address] [place], [place] MEDICARE MEDICARE [facility] [place] Care Teams Shank Cementer Hand Relationship Specialty Start Date End Date Chalo Barrera MD PCP - General Family Medicine 12/12/22
--- OUTSIDE RECORDS SUMMARY | 2024-11-04 16:01 | XMS_ITS | CONTINUITY OF CARE DOCUMENT ---
Author Name chris, chris Address Unknown Organization [facility] Address [address] [place] [address] Phone [phone] Care Team Providers Care Cotton Expert Name Role Phone Lusi Chacon MD Unavailable [phone] KAYLA MARTINES, JESSICA F Unavailable [phone] KAYLA MARTINES, JESSICA F Unavailable PROBLEMS Condition Status Date Provider Notes senior living anticoagulant therapy active Consuelo Pérez RN AFIB-permanent active Luis Chacon MD HTN-07/02 ECHO EF 70 INCREAS E VELOCITY PV,MV, & AV completed - Bianka Saab NP ABN EKG-09/06 HOLTER AFIB BBB HR 31-100 active ? Sterling Brar RN HTN-06/05 ECHO LVH EF 55 ECHO EF 50 2+ ALFREDITO REGURG completed - Bianka Saab NP LAE-04/08 ECHO EF 50 MOD-SEVERE LAE active U handy Chacon MD Family History of Sudden Car diac : active ? Bianka Haskins NP Aortic stenosis, mild active Bianka ashton NP Cardiology examination active Luis Chacon MD ENCOUNTERS Date Type Provider Location Encounter Diag nosis - In-person encounter Office Visit Luis Chacon MD [facility] Cardiology examination - In-person encounter Office Visit Luis Chacon MD [facility] - In-person encounter Office Visit Luis Chacon MD [facility] AFIB-permanent - In-person encounter Office Visit Luis Chacon MD [facility] HTN-07/02 ECHO EF 70 INCREASE VELOCITY PV,MV, & AVHTN-06/05 ECHO LVH EF 55 06/04 ECHO EF 50 2+ ALFREDITO REGURGAortic stenosis, mild - In-person encounter Office Visit Luis Chacon MD [facility] - In-person encounter Office Visit Luis Chacon MD [facility] - In-person encounter Office Visit Luis Chacon MD [facility] - In-person encounter Office Visit Luis Chacon MD [facility] - In-person encounter Office Visit Luis Chacon MD [facility] - In-person encounter Office Visit Luis Chacon MD [facility] Family History of Sudden Cardiac : - In-person encounter Office Visit Luis Chacon MD [facility] - In-person encounter Office Visit Luis Chacon MD [facility] [id number] 2 ECHO EF 50 MOD-SEVERE LAE - In-person encounter Office Visit Luis Chacon MD [facility] - In-person encounter Office Visit Luis Chacon MD [facility] - In-person encounter Office Visit Luis Chacon MD [facility] - In-person encounter Office Visit Luis Chacon MD [facility] - In-person encounter Office Visit Luis Chacon MD [facility] - In-person encounter Office Visit Luis Chacon MD [facility] - In-person encounter Office Visit Luis Chacon MD [facility] - In-person encounter Office Visit Luis Chacon MD [facility] - In-person encounter Office Visit Luis Chacon MD [facility] - In-person encounter Office Visit Luis Chacon MD [facility] Office [id number] / 05 ECHO EF 70 INCREASE VELOCITY PV,MV, & AVABN EKG-09/06 HOLTER AFIB BBB HR 31-100 VITAL SIGNS Date Observation Value Provider Body Mass Index (Ratio) 30.13 kg/m2 Isabelle Chacon MD blood pressure, cuff size regular [facility], [facility] 93 mm[Hg[facility], systolic 167 mm[Hg] [facility] [place] [facility] saturation, oximetry 97 % [facility] respiratory rate E&M 12 /min [facility] pulse rate 90 /min [facility] weight E&M 210 [lb_av] [facility] height E&M 70 [in_i] [facility] Body Mass Index (Ratio) 31.13 kg/m2 Isabelle Chacon MD blood pressure, cuff size regular Ke rri Lázaronedeborah blood pressure, diastolic 94 mm[Hg] Ke rri Jamauenedeborah blood pressure, systolic 150 mm[Hg] Armando Uribe oxygen saturation, oximetry 98 % Cecy Uribe respiratory rate E&M 12 /min Cecy dumont pulse rate 70 /min Cecy Roberto [facility] weight E&M 217 [lb_av] Cecy Roberto [facility] height E&M 70 [in_i] Cecy Roberto [facility] Body Mass Index (Ratio) 32.14 kg/m2 Isabelle Chacon MD blood pressure, diastolic 119 mm[Hg] Karly lamar [place] blood pressure, systolic 138 mm[Hg] Ricky beach [place] oxygen saturation, oximetry 97 % Gloria Yoon pulse rate 80 /min Gloria matias weight E&M 224 [lb_av] Gloria matias respiratory rate E&M 16 /min Susan calderon [place] blood pressure, cuff size large Karly lamar [place] height E&M 70 [in_i] Gloria matias blood pressure, diastolic 104 mm[Hg] Acosta Brar RN blood pressure, systolic 173 mm[Hg] Sterling Brar RN height E&M 70 [in_i] Sterling Brar RN height in centimeters E&M 177.8 cm Acosta Brar RN Body Mass Index (Ratio) 32.28 kg/m2 Isabelle Chacon MD blood pressure, diastolic 80 mm[Hg] Sa ra Maynard blood pressure, systolic 161 mm[Hg] Preet a Maynard pulse rate 78 /min Misty Maynard respiratory rate E&M 17 /min Misty Si ms oxygen saturation, oximetry 97 % Misty Maynard weight E&M 225 [lb_av] Misty Maynard blood pressure, cuff size large Sa ra Maynard height E&M 70 [in_i] Misty Maynard Body Mass Index (Ratio) 31.28 kg/m2 Rosetta Pérez weight in kilograms E&M 98.88 kg oRsetta Pérez weight E&M 218 [lb_av] Kalyani sterling height E&M 70 [in_i] Kalyani sterling height in centimeters E&M 177.80 cm Himanshu alena Beto Body Mass Index (Ratio) 31.42 kg/m2 Isabelle Chacon MD blood pressure, cuff size large Ke maria isabel Uribe blood pressure, diastolic 90 mm[Hg] Jose Uribe blood pressure, systolic 132 mm[Hg] Armando Uribe oxygen saturation, oximetry 98 % Cecy Uribe respiratory rate E&M 18 /min Cecy dumont pulse rate 77 /min Cecy Roberto kade weight E&M 219 [lb_av] Cecy Roberto [facility] height E&M 70 [in_i] Cecy Roberto [facility] blood pressure, diastolic 80 mm[Hg] Da [facility] blood pressure, systolic 140 mm[Hg] Dac ia [place]bank height E&M 70 [in_i] Leann [place] height in centimeters E&M 177.8 cm Da [facility] Body Mass Index (Ratio) 31.88 kg/m2 Isabelle Chacon MD blood pressure, diastolic 81 mm[Hg] Luis Alfredo [place] blood pressure, systolic 154 mm[Hg] Shannon [place] oxygen saturation, oximetry 97 % Ingrid Ventura respiratory rate E&M 18 /min Lia [place] pulse rate 74 /min Ingrid childers weight E&M 222.2 [lb_av] Ingrid hughes height E&M 70 [in_i] Ingrid childers blood pressure, diastolic 80 mm[Hg] Luis Alfredo [place] blood pressure, systolic 156 mm[Hg] Shannon [place]ura pulse rate 88 /min Ingrid childers oxygen saturation, oximetry 98 % Ingrid Ventura respiratory rate E&M 16 /min Lia Ventura Body Mass Index (Ratio) 32.62 kg/m2 Dea Ventura weight E&M 227.4 [lb_av] Ingrid hughes blood pressure, diastolic 88 mm[Hg] Me hollingsworth Davis blood pressure, systolic 150 mm[Hg] Afsaneh rodas [place] Body Mass Index (Ratio) 31.42 kg/m2 Shakira tompkins Davis pulse rate 80 /min Brandee Davis oxygen saturation, oximetry 98 % Brandee Davis respiratory rate E&M 15 /min Brandee Davis weight E&M 219 [lb_av] Brandee Davis Body Mass Index (Ratio) 30.56 kg/m2 Benito i Jojo blood pressure, diastolic 90 mm[Hg] Ke rri Jojo blood pressure, systolic 140 mm[Hg] Armando ri Jojo pulse rate 93 /min Cecy Pardeep er oxygen saturation, oximetry 98 % Cecy Jojo respiratory rate E&M 16 /min Cecy dumont weight E&M 213 [lb_av] Cecy Lázaronechene lder Body Mass Index (Ratio) 31.10 kg/m2 Benito i Jojo blood pressure, diastolic 85 mm[Hg] Ke rri Lázaroneradhaer blood pressure, systolic 143 mm[Hg] Armando cordova Jojo pulse rate 109 /min Cecy Pardeep guptaer oxygen saturation, oximetry 99 % Cecy Jojo respiratory rate E&M 15 /min Cecy Jaime tim weight E&M 216 [lb_av] Cecy Pardeep guptaer height E&M 70 [in_i] Cecy Pardeep guptaer blood pressure, diastolic 99 mm[Hg] Beck blood pressure, systolic 161 mm[Hg] Guy Devi pulse rate 84 /min Nanci Devi oxygen saturation, oximetry 99 % Nanci Devi respiratory rate E&M 16 /min Nanci Devi weight E&M 219 [lb_av] Nanci Devi blood pressure, diastolic 75 mm[Hg] Acosta Brar RN blood pressure, systolic 145 mm[Hg] Sterling Brar RN pulse rate 81 /min Sterling Brar RN oxygen saturation, oximetry 100 % Sterling Brar RN respiratory rate E&M 16 /min Sterling polanco RN weight E&M 218 [lb_av] Sterling Brar RN blood pressure, diastolic 70 mm[Hg] Luis Alfredo Rebollar'Germain blood pressure, systolic 128 mm[Hg] Shannon jefferson [place] pulse rate 89 /min Wilma [place] oxygen saturation, oximetry 97 % Wilma [place] respiratory rate E&M 16 /min Wilma [place] weight E&M 213 [lb_av] Wilma O'[place] blood pressure, diastolic, left arm 96 mm [Hg] Nanci Devi blood pressure, systolic, left arm 158 mm [Hg] Guyyedavdi Devi blood pressure, diastolic, right arm 111 mm[Hg] Nanci Devi blood pressure, systolic, right arm 168 m m[Hg] Guydavid Devi blood pressure, diastolic, standing 96 mm [Hg] Guydavid Devi blood pressure, systolic, standing 158 mm [Hg] Nanci Devi blood pressure, diastolic 111 mm[Hg] Alston Devi blood pressure, systolic 168 mm[Hg] Guy david [place] pulse rate 80 /min [facility] oxygen saturation, oximetry 98 % [facility] respiratory rate E&M 16 /min [facility] weight E&M 223 [lb_av] [facility] blood pressure, diastolic 88 mm[Hg] Jessi seph [place] blood pressure, systolic 158 mm[Hg] Stanley eph [place] pulse rate 90 /min Jesus [place] oxygen saturation, oximetry 96 % Jesus [place] respiratory rate E&M 16 /min Jesus [place] weight E&M 217 [lb_av] Jesus [place] blood pressure, diastolic, right arm 84 m m[Hg] Jesus [place] blood pressure, systolic, right arm 158 m m[Hg] Jesus [place] blood pressure, diastolic 84 mm[Hg] Jessi seph [place] blood pressure, systolic 158 mm[Hg] Stanley eph [place] pulse rate 88 /min Jesus [place] oxygen saturation, oximetry 98 % Jesus [place] respiratory rate E&M 16 /min Jesus [place] weight E&M 218 [lb_av] Jesus [place] blood pressure, diastolic 81 mm[Hg] Acosat Brar RN blood pressure, systolic 152 mm[Hg] Sterling Brar RN pulse rate 56 /min Sterling Brar RN oxygen saturation, oximetry 97 % Sterling Amados RN respiratory rate E&M 16 /min Sterling polanco RN weight E&M 213 [lb_av] Sterling Amados RN blood pressure, diastolic 66 mm[Hg] Acosta Brar RN blood pressure, systolic 123 mm[Hg] Sterling Amados RN pulse rate 75 /min Sterling Brar RN oxygen saturation, oximetry 97 % Sterling Amados RN respiratory rate E&M 18 /min Sterling polanco RN weight E&M 207 [lb_av] Sterling Amados RN blood pressure, diastolic 100 mm[Hg] Acosta Brar RN blood pressure, systolic 170 mm[Hg] Sterling Amados RN pulse rate 119 /min Sterling Amados RN oxygen saturation, oximetry 97 % Sterling Brar RN respiratory rate E&M 18 /min Sterling polanco RN weight E&M 207 [lb_av] Sterling Amados RN blood pressure, diastolic 105 mm[Hg] Jean Santana blood pressure, systolic 170 mm[Hg] Kwon pulse rate 85 /min Katina Santana oxygen saturation, oximetry 97 % Katina Santana respiratory rate E&M 20 /min Katina hu weight E&M 212 [lb_av] Katina Santana blood pressure, diastolic 90 mm[Hg] Luis Alfredo [place] blood pressure, systolic 160 mm[Hg] Shannon Ventura pulse rate 100 /min Ingrid childers oxygen saturation, oximetry 98 % Ingrid Ventura respiratory rate E&M 16 /min Lia Ventura weight E&M 210.4 [lb_av] Ingrid hughes ALLERGIES Allergy Name Onset Date Reaction Criticality Status BEE STINGS High Criticality active RESULTS Date Observation Value Provider Reference Range Interpretation Location 10/03 coagulation managed by Sterling Amados RN Sterling Brar RN 10/03 international normalized ratio (INR) 2.2 Sterling Brar RN Normal 10/03 prothrombin time (patient) 26.2 s Sterling Brar RN 09/05 coagulation managed by Sterling Amados RN Sterling Amados RN 09/05 international normalized ratio (INR) 2.0 Sterling Amados RN Normal 09/05 prothrombin time (patient) 224.4 s Sterling Amados RN 10/09 coagulation managed by Sterling Brar RN Sterling Amados RN 10/09 international normalized ratio (INR) 2.7 Sterling Brar RN Normal 10/09 prothrombin time (patient) 32.2 s Sterling Brar RN 09/11 coagulation managed by Consuelo Pérez RN 09/11 international normalized ratio (INR) 3.3 Consuelo Pérez RN High 09/11 prothrombin time (patient) 40.0 s Consuelo Pérez RN 0 coagulation managed by Consuelo Pérez RN prothrombin time (patient) 25.5 s Consuelo Pérez RN 0 international normalized ratio (INR) 2.1 Consuelo Pérez RN Normal 04/25 coagulation managed by Sterling Brar RN Sterling Amados RN 04/25 international normalized ratio (INR) 2.3 Sterling Brar RN Normal 04/25 prothrombin time (patient) 27.7 s Sterling Amados RN 0 04/04 coagulation managed by Sterling Brar RN Sterling Amados RN 0 04/04 international normalized ratio (INR) 2.1 Sterling Brar RN Normal 04/04 prothrombin time (patient) 24.7 s Sterling Amados RN 0 03/21 coagulation managed by Sterling Brar RN Sterling Brar RN 0 03/21 international normalized ratio (INR) 2.3 Sterling Brar RN Normal 03/21 prothrombin time (patient) 27.5 s Sterling Amados RN 0 03/14 coagulation managed by Sterling Brar RN Sterling Brar RN 0 03/14 international normalized ratio (INR) 4.1 Sterling Brar RN Normal 0 03/14 prothrombin time (patient) 49.3 s Sterling Brar RN 0 02/26 coagulation managed by Consuelo Pérez RN 0 02/26 international normalized ratio (INR) 2.0 Consuelo Pérez RN Normal 0 02/26 prothrombin time (patient) 23.8 s Consuelo Pérez RN 2023/0 02/13 coagulation managed by Consuelo Pérez RN 2023/0 02/13 international normalized ratio (INR) 2.1 Consuelo Pérez RN Normal 0 02/13 prothrombin time (patient) 25.2 s Consuelo Pérez RN 0 02/07 coagulation managed by Sterling Brar RN 0 01/02 coagulation managed by Consuelo Pérez RN 0 01/02 prothrombin time (patient) 26.6 s Consuelo Pérez RN 0 01/02 international normalized ratio (INR) 2.2 Consuelo Pérez RN Low 0 12/04 coagulation managed by Sterling Brar RN Sterling Brar RN 0 12/04 international normalized ratio (INR) 2.8 Sterling Brar RN Normal 0 12/04 prothrombin time (patient) 34.0 s Sterling Brar RN 0 11/01 coagulation managed by Sterling Amados RN 0 11/01 international normalized ratio (INR) 2.7 Sterling Amados RN Normal 0 11/01 prothrombin time (patient) 31.9 s Sterling Brar RN 0 10/04 coagulation managed by Sterling Brar RN Sterling Brar RN 0 10/04 international normalized ratio (INR) 2.0 Sterling Amados RN Normal 0 10/04 prothrombin time (patient) 23.9 s Sterling Brar RN 0 09/21 coagulation managed by Sterling Amados RN Sterling Brar RN 0 09/21 international normalized ratio (INR) 3.3 Sterling Amados RN Normal 10/25 coagulation managed by Sterling Amados RN Sterling Brar RN 10/25 international normalized ratio (INR) 2.3 Sterling Brar RN Normal 10/25 prothrombin time (patient) 27.5 s Sterling Amados RN 09/26 coagulation managed by Sterling Brar RN Sterling Amados RN 09/26 international normalized ratio (INR) 2.4 Sterling Amados RN Normal 09/26 prothrombin time (patient) 29.3 s Sterling Amados RN 08/29 coagulation managed by Sterling Amados RN Sterling Amados RN 08/29 international normalized ratio (INR) 2.5 Sterling Amados RN Normal 08/29 prothrombin time (patient) 29.5 s Sterling Amados RN 0 coagulation managed by Sterling Amados RN Sterling Amados RN international normalized ratio (INR) 2.3 Sterling Amados RN Normal 0 prothrombin time (patient) 27.5 s Sterling Amados RN 05/02 coagulation managed by Consuelo Pérez RN 05/02 international normalized ratio (INR) 2.7 Consuelo Pérez RN Normal 05/02 prothrombin time (patient) 32.0 s Consuelo Pérez RN 03/30 coagulation managed by Consuelo Pérez RN 03/30 international normalized ratio (INR) 2.4 Consuelo Pérez RN Normal 03/30 prothrombin time (patient) 28.6 s Consuelo Pérez RN 03/02 coagulation managed by Sterling Amados RN Sterling Amados RN 03/02 international normalized ratio (INR) 2.6 Sterling Amados RN Normal 03/02 prothrombin time (patient) 31.7 s Sterling Amados RN 01/26 coagulation managed by Sterling Brar RN Sterling Amados RN 01/26 international normalized ratio (INR) 2.0 Sterling Amados RN Normal 01/26 prothrombin time (patient) 24.0 s Sterling Amados RN 12/29 coagulation managed by Sterling Brar RN Sterling Amados RN 12/29 international normalized ratio (INR) 2.4 Sterling Brar RN Normal 12/29 prothrombin time (patient) 28.4 s Sterling Amados RN 12/23 coagulation managed by Sterling Brar RN Sterling Amados RN 12/23 international normalized ratio (INR) 1.5 Sterling Amados RN Normal 12/23 prothrombin time (patient) 18.2 s Sterling Brar RN 0 12/19 coagulation managed by Consuelo Pérez RN 0 12/19 international normalized ratio (INR) 1.0 Consuelo Pérez RN Normal 12/19 prothrombin time (patient) 12.5 s Consuelo Pérez RN 0 12/05 coagulation managed by Consuelo Pérez RN 0 12/05 international normalized ratio (INR) 3.2 Consuelo Pérez RN Normal 0 12/05 prothrombin time (patient) 38.6 s Consuelo Pérez RN 0 11/03 coagulation managed by Consuelo Pérez RN 0 11/03 international normalized ratio (INR) 2.7 Consuelo Pérez RN Normal 0 11/03 prothrombin time (patient) 32.6 s Consuelo Pérez RN 0 10/24 coagulation managed by Consuelo Pérez RN 0 10/24 international normalized ratio (INR) 1.9 Consuelo Pérez RN Normal 10/24 prothrombin time (patient) 22.3 s Consuelo Pérez RN 0 10/20 coagulation managed by Consuelo Pérez RN 0 10/20 international normalized ratio (INR) 3.8 Consuelo Pérez RN Normal 10/20 prothrombin time (patient) 46.1 s Consuelo Pérez RN 09/22 coagulation managed by Consuelo Pérez RN 09/22 international normalized ratio (INR) 2.5 Consuelo Pérez RN Normal 09/01 coagulation managed by Sterling Brar RN 09/01 international normalized ratio (INR) 2.4 Sterling Brar RN Normal 09/01 prothrombin time (patient) 29.0 s Sterling Brar RN 10/05 coagulation managed by Consuelo Pérez RN 10/05 international normalized ratio (INR) 3.2 Consuelo Pérez RN Normal 10/05 prothrombin time (patient) 38.2 s Consuelo Pérez RN 09/07 coagulation managed by Consuelo Pérez RN 09/07 international normalized ratio (INR) 2.5 Consuelo Pérez RN Normal 09/07 prothrombin time (patient) 30.3 s Consuelo Pérez RN 0 coagulation managed by Consuelo Pérez RN international normalized ratio (INR) 3.1 Consuelo Pérez RN Normal prothrombin time (patient) 37.3 s Consuelo Pérez RN 0 05/05 international normalized ratio (INR) 2.6 Corry Arnold Normal 05/05 coagulation managed by Corry Arnold RN Corryjacek Arnold 04/07 coagulation managed by Consuelo Pérez RN 04/07 international normalized ratio (INR) 2.8 Consuelo Pérez RN Normal 0 04/07 prothrombin time (patient) 33.0 s Consuelo Pérez RN 0 03/10 coagulation managed by Consuelo Pérez RN 03/10 international normalized ratio (INR) 3.3 Consuelo Pérez RN Normal 03/10 prothrombin time (patient) 40.1 s Consuelo Pérez RN 02/17 coagulation managed by Consuelo Pérez RN 02/17 international normalized ratio (INR) 2.8 Consuelo Pérez RN Normal 02/17 prothrombin time (patient) 33.0 s Consuelo Pérez RN 02/03 coagulation managed by Corry Arnold RN Corryjacek Arnold 02/03 prothrombin time (patient) 40.8 s Donna Murdock 02/03 international normalized ratio (INR) 3.4 Donna [place] Normal 01/20 coagulation managed by Sterling Brar RN 01/20 international normalized ratio (INR) 2.2 Sterling Brar RN Normal 0 01/20 prothrombin time (patient) 26.4 s Sterling Brar RN 0 01/13 coagulation managed by Sterling Brar RN 0 01/13 international normalized ratio (INR) 4.0 Sterling Brar RN Normal 0 01/13 prothrombin time (patient) 48.0 s Sterling Brar RN 0 12/16 coagulation managed by Sterling Brar RN 0 12/16 international normalized ratio (INR) 2.0 Sterling Brar RN Normal 0 12/16 prothrombin time (patient) 24.3 s Sterling Brar RN 11/18 coagulation managed by Sterling Brar RN 11/18 international normalized ratio (INR) 2.9 Sterling Brar RN Normal 11/18 prothrombin time (patient) 35.0 s Sterling Brar RN 10/20 coagulation managed by Sterling Brar RN 10/20 international normalized ratio (INR) 2.1 Sterling Brar RN Normal 10/20 prothrombin time (patient) 24.9 s Sterling Brar RN 09/20 coagulation managed by Sterling Brar RN 09/20 international normalized ratio (INR) 2.1 Misty Maynard Normal 09/20 prothrombin time (patient) 25.5 s Misty Maynard 09/09 coagulation managed by Sterling Brar RN 09/09 prothrombin time (patient) 18.3 s Trynett Moraes 09/09 international normalized ratio (INR) 1.5 Tryguicho Moraes Normal 10/12 coagulation managed by Sterling Brar RN 10/12 international normalized ratio (INR) 2.1 Rhonda Conyngham Normal 10/12 prothrombin time (patient) 25.6 s Rhonda Conyngham 09/11 coagulation managed by Sterling Brar RN 09/11 prothrombin time (patient) 25.8 s Trynett Moraes 09/11 international normalized ratio (INR) 2.2 Tryguicho Moraes Normal 08/28 coagulation managed by Sterling Brar RN 08/28 international normalized ratio (INR) 2.6 Ingrid Ventura Normal 08/28 prothrombin time (patient) 31.6 s Ingrid Ventura coagulation managed by Sterling Brar RN international normalized ratio (INR) 1.4 Sterling Brar RN Normal prothrombin time (patient) 16.9 s Sterling Brar RN coagulation managed by Sterling Brar RN prothrombin time (patient) 23.9 s Neli Camryn 007 international normalized ratio (INR) 2.0 Neli Camryn Normal 05/17 coagulation managed by Sterling Brar RN 05/17 international normalized ratio (INR) 1.6 Vane Smiley Normal 05/17 prothrombin time (patient) 23.7 s Vane Smiley 04/15 international normalized ratio (INR) 2.0 Cecy Gruenenfelder Normal 04/15 prothrombin time (patient) 24.5 s Cecy Gruenenfelder 04/01 coagulation managed by Jacquie Hayes 04/01 prothrombin time (patient) 24.0 s Neli Camryn 04/01 international normalized ratio (INR) 2.0 Neli Camryn Normal 03/25 coagulation managed by Sterling Brar RN 03/25 prothrombin time (patient) 45.2 s Vane Smiley 03/25 international normalized ratio (INR) 4.5 Vane Smiley Normal 02/25 coagulation managed by Sterling Brar RN 02/25 prothrombin time (patient) 17..1 Chastity Dedra 02/25 international normalized ratio (INR) 1.4 Chastity Dedra Normal 01/28 coagulation managed by Sterling Brar RN 01/28 international normalized ratio (INR) 2.2 Alyson Can Normal 01/28 prothrombin time (patient) 26.8 s Alysondawn Can 12/31 coagulation managed by Sterling Brar RN 12/31 international normalized ratio (INR) 2.3 Cecy Gruenenfelder Normal 12/31 prothrombin time (patient) 27.5 s Cecy Gruenenfelder 12/03 coagulation managed by Sterling Brar RN 12/03 international normalized ratio (INR) 2.3 Sterling Brar RN Normal 12/03 prothrombin time (patient) 27.6 s Sterling Brar RN 11/19 coagulation managed by Corry Arnold 11/19 international normalized ratio (INR) 2.2 Alysonandrew Can Normal 11/19 prothrombin time (patient) 26.2 s Alyson Can 11/05 coagulation managed by Corry Arnold 11/05 international normalized ratio (INR) 1.7 Corry Arnold Normal 10/21 coagulation managed by Sterling Brar RN 10/21 international normalized ratio (INR) 2.1 Cecy Gruenenfelder Normal 10/21 prothrombin time (patient) 25.0 s Cecy Gruenenfelder 10/08 coagulation managed by Sterling Brar RN 10/08 international normalized ratio (INR) 1.8 Cecy Gruenenfelder Normal 10/08 prothrombin time (patient) 21.8 s Cecy Gruenenfelder 09/09 coagulation managed by Corry Arnold 09/09 international normalized ratio (INR) 2.2 Ingrid Ventura Normal 09/09 prothrombin time (patient) 26.4 s Ingrid Ventura 10/13 coagulation managed by Sterling Brar RN 10/13 prothrombin time (patient) 25.7 s Kelly Block 10/13 international normalized ratio (INR) 2.1 Kelly Block Normal 09/12 coagulation managed by Sterling Brar RN 09/12 international normalized ratio (INR) 1.9 Sterling Brar RN Normal 09/12 prothrombin time (patient) 22.4 s Sterling Brar RN coagulation managed by Sterling Brar RN international normalized ratio (INR) 2.1 Alyson Can Normal prothrombin time (patient) 25.8 s Alyson Can 05/14 coagulation managed by Sterling Brar RN 05/14 international normalized ratio (INR) 2.8 Alyson Can Normal 2020/0 05/14 prothrombin time (patient) 33.5 s Alyson Can 2020/0 05/01 coagulation managed by Sterling Brar RN 2020/0 05/01 international normalized ratio (INR) 1.8 Sterling Brar RN Normal 2020/0 05/01 prothrombin time (patient) 21.2 s Sterling Brar RN 2020/0 04/02 coagulation managed by Sterling Brar RN 2020/0 04/02 international normalized ratio (INR) 2.0 Alyson Can Normal 2020/0 04/02 prothrombin time (patient) 23.9 s Alyson Can 2020/0 03/05 coagulation managed by Sterling Brar RN 2020/0 03/05 international normalized ratio (INR) 2.1 Ingrid Ventura Normal 2020/0 03/05 prothrombin time (patient) 25.3 s Ingrid Ventura 2020/0 02/05 coagulation managed by Sterling Brar RN 2020/0 02/05 international normalized ratio (INR) 1.9 Alyson Can Normal 2020/0 02/05 prothrombin time (patient) 23.2 s Alyson Can 2020/0 01/08 coagulation managed by Sterling Brar RN 2020/0 01/08 international normalized ratio (INR) 1.9 Alyson Can Normal 2020/0 01/08 prothrombin time (patient) 22.3 s Alyson Can 2020/0 12/25 coagulation managed by Sterling Brar RN 2020/0 12/25 international normalized ratio (INR) 4.3 Tonsha Rivers Normal 2020/0 30 prothrombin time (patient) 51.6 s Tonsha Rivers 2020/0 402 coagulation managed by Sterling Brar RN 2020/0 02 international normalized ratio (INR) 3.0 Tonsha Rivers Normal 2020/0 402 prothrombin time (patient) 35.6 s Tonsha Rivers 2020/0 305 coagulation managed by Sterling Brar RN 2020/0 305 international normalized ratio (INR) 2.4 Tonsha Rivers Normal 2020/0 305 prothrombin time (patient) 28.8 s Tonsha Rivers 2020/0 205 coagulation managed by Sterling Brar RN 2020/0 205 international normalized ratio (INR) 2.3 Alyson Can Normal 10/02 prothrombin time (patient) 27.6 s Alyson Can 09/05 coagulation managed by Sterling Brar RN 09/05 international normalized ratio (INR) 2.4 Tonsha Rivers Normal 09/05 prothrombin time (patient) 29.0 s Tonsha Rivers 10/09 coagulation managed by Sterling Brar RN 10/09 international normalized ratio (INR) 2.0 Alyson Can Normal 10/09 prothrombin time (patient) 24.3 s Alyson Can 09/10 coagulation managed by Sterling Brar RN 09/10 international normalized ratio (INR) 2.3 Alyson Can Normal 09/10 prothrombin time (patient) 28.1 s Alyson Can international normalized ratio (INR) 2.1 Sterling Diaz RN Normal prothrombin time (patient) 25.3 s Sterling Diaz RN 05/16 coagulation managed by Sterling Brar RN 05/16 international normalized ratio (INR) 2.6 Alyson Can Normal 05/16 prothrombin time (patient) 31.2 s Alyson Can 04/18 coagulation managed by Sterling Brar RN 04/18 international normalized ratio (INR) 2.2 Alyson Can Normal 04/18 prothrombin time (patient) 26.5 s Alyson Can 03/21 coagulation managed by Sterling Brar RN 03/21 international normalized ratio (INR) 2.3 Alyson Can Normal 03/21 prothrombin time (patient) 28.2 s Alyson Can 03/01 coagulation managed by Paola Ross RN 03/01 international normalized ratio (INR) 2.7 Alyson Can Normal 03/01 prothrombin time (patient) 32.1 s Alyson Can 02/22 coagulation managed by Sterling Brar RN 02/22 international normalized ratio (INR) 1.5 Alyson Can Normal 02/22 prothrombin time (patient) 18.5 s Alyson Can 01/10 coagulation managed by Sterling Brar RN 01/10 international normalized ratio (INR) 2.3 [place] Negro Normal 01/10 prothrombin time (patient) 27.2 s Sanjay Negro 12/27 coagulation managed by Anny Ferrera 12/27 international normalized ratio (INR) 1.7 Sanjay Negro Normal 12/27 prothrombin time (patient) 20.2 s [place] Negro 11/29 coagulation managed by Sterling Brar RN 11/29 international normalized ratio (INR) 2.0 Alyson Can Normal 11/29 prothrombin time (patient) 24.1 s Alyson Can 11/01 coagulation managed by Dea Williamson RN 11/01 international normalized ratio (INR) 2.2 Leann Margaret Normal 11/01 prothrombin time (patient) 26.9 s Leann Margaret 10/04 coagulation managed by Domitila Bermudez [employer] Domitila Bermudez 10/04 international normalized ratio (INR) 1.8 Leann Margaret Normal 10/04 prothrombin time (patient) 22.1 s Leann Margaret 09/06 coagulation managed by Sterling Brar RN 09/06 international normalized ratio (INR) 2.3 Alyson Can Normal 09/06 prothrombin time (patient) 27.6 s Alyson Can 10/24 coagulation managed by Sterling Brar RN 10/24 international normalized ratio (INR) 3.2 Alyson Can Normal 10/24 prothrombin time (patient) 38.5 s Alyson Can 09/25 coagulation managed by Sterling Brar RN 09/25 international normalized ratio (INR) 3.1 Alyson Can Normal 09/25 prothrombin time (patient) 37.6 s Alyson Can international normalized ratio (INR) 3.1 Alyson Can Normal prothrombin time (patient) 37.1 s Alyson Can coagulation managed by Domitila Bermudez international normalized ratio (INR) 2.6 Alyson Can Normal prothrombin time (patient) 31.0 s Alyson Can 05/01 coagulation managed by Sterling Mccoy 05/01 international normalized ratio (INR) 2.5 IngridCornelia Ventura Normal 05/01 prothrombin time (patient) 30.3 s Ingrid Ventura 04/03 coagulation managed by Isabell Mccoy 04/03 international normalized ratio (INR) 2.8 Ingrid Swannenson Normal 04/03 prothrombin time (patient) 34.1 s Ignrid Ventura 03/06 coagulation managed by Isabell Mccoy 03/06 international normalized ratio (INR) 2.3 Ingrid Ventura Normal 03/06 prothrombin time (patient) 27.4 s Ingrid Ventura 02/15 coagulation managed by Isabell Mccoy 02/15 international normalized ratio (INR) 2.4 Alyson Can Normal 02/15 prothrombin time (patient) 29.0 s Alyson Can 02/01 coagulation managed by Isabell Mccoy 02/01 international normalized ratio (INR) 3.3 Leann Margaret Normal 02/01 prothrombin time (patient) 39.8 s Leann Margaret 01/04 coagulation managed by Sterling Brar RN 01/04 international normalized ratio (INR) 2.5 Leann Margaret Normal 01/04 prothrombin time (patient) 29.7 s Leann Margaret 12/07 coagulation managed by Sterling Brar RN 12/07 international normalized ratio (INR) 2.3 Leann Margaret Normal 12/07 prothrombin time (patient) 27.9 s Leann Margaret 11/13 coagulation managed by Sterling Brar RN 11/13 prothrombin time (patient) 33.5 s [place] [employer] 11/13 international normalized ratio (INR) 2.8 Vane Smiley Normal 10/26 coagulation managed by Sterling Brar RN 10/26 international normalized ratio (INR) 1.8 Leann Margaret Normal 10/26 prothrombin time (patient) 21.7 s Leann Margaret 10/12 coagulation managed by Barbi Singh RN 10/12 prothrombin time (patient) 22.7 s Vane Smiley 10/12 international normalized ratio (INR) 1.9 [place] Normal 09/28 coagulation managed by Sterling Brar RN 09/28 international normalized ratio (INR) 1.7 [place] Negro Normal 09/28 prothrombin time (patient) 20.4 s Sanjay Negro 08/31 coagulation managed by Sterling Brar RN 08/31 international normalized ratio (INR) 1.9 Leann Margaret Normal 08/31 prothrombin time (patient) 22.4 s Leann Margaret 10/01 coagulation managed by Dea Williamson RN 10/01 international normalized ratio (INR) 1.9 Leann Margaret Normal 10/01 prothrombin time (patient) 22.6 s Leann Margaret 09/18 coagulation managed by Sterling Brar RN 09/18 international normalized ratio (INR) 1.9 Leann Margaret Normal 09/18 prothrombin time (patient) 22.5 s Leann Margaret coagulation managed by Sterling Brar RN international normalized ratio (INR) 2.1 Ingrid Ventura Normal prothrombin time (patient) 25.6 s Ingrid Ventura 05/25 coagulation managed by Dea Williamson RN 05/25 international normalized ratio (INR) 2.6 Sanjay Negro Normal 05/25 prothrombin time (patient) 30.7 s Sanjay Negro 04/27 coagulation managed by Sterling Brar RN 04/27 international normalized ratio (INR) 2.3 Leann Margaret Normal 04/27 prothrombin time (patient) 27.0 s Leann Margaret 03/27 coagulation managed by Sterling Brar RN 03/27 international normalized ratio (INR) 3.7 Leann Margaret Normal 03/27 prothrombin time (patient) 44.8 s Leann Margaret 02/22 international normalized ratio (INR) 2.7 Leann Margaret Normal 02/22 prothrombin time (patient) 31.9 s Leann Margaret 01/25 coagulation managed by Sterling Brar RN 01/25 international normalized ratio (INR) 2.7 Leann Margaret Normal 01/25 prothrombin time (patient) 32.6 s Leann Margaret 12/29 coagulation managed by Sterling Brar RN 12/29 international normalized ratio (INR) 2.7 Leann Maragret Normal 12/29 prothrombin time (patient) 32.1 s Leann Margaret 12/01 coagulation managed by Sterling Brar RN 12/01 international normalized ratio (INR) 2.3 Ingrid Ventura Normal 12/01 prothrombin time (patient) 28.0 s Ingrid Ventura 10/26 coagulation managed by Sterling Brar RN 10/26 international normalized ratio (INR) 1.9 Leann Margaret Normal 10/26 prothrombin time (patient) 23.2 s Leann Margaret 09/28 coagulation managed by Sterling Brar RN 09/28 international normalized ratio (INR) 2.3 Leann Margaret Normal 09/28 prothrombin time (patient) 27.7 s Leann Margaret 09/14 coagulation managed by Sterling Brar RN 09/14 international normalized ratio (INR) 1.5 Leann Margaret Normal 09/14 prothrombin time (patient) 18.0 s Leann Margaret 10/18 coagulation managed by Sterling Brar RN 10/18 international normalized ratio (INR) 2.0 Leann Margaret Normal 10/18 prothrombin time (patient) 23.5 s Leann Margaret 09/19 coagulation managed by Sterling Brar RN 09/19 international normalized ratio (INR) 1.9 Ingrid Ventura Normal 09/19 prothrombin time (patient) 23.0 s Ingrid Ventura coagulation managed by Sterling Brar RN international normalized ratio (INR) 2.3 Sterling Brar RN Normal prothrombin time (patient) 27.1 s Sterling Brar RN 05/20 coagulation managed by Sterling Brar RN 05/20 international normalized ratio (INR) 2.1 Cecy Gruenenfelder Normal 05/20 prothrombin time (patient) 25.5 s Cecy Gruenenfelder 04/22 coagulation managed by Sterling Brar RN 04/22 international normalized ratio (INR) 2.8 Cecy Gruenenfelder Normal 04/22 prothrombin time (patient) 33.9 s Cecy Gruenenfelder 03/29 coagulation managed by Sterling Brar RN 03/29 international normalized ratio (INR) 2.2 Ingrid Ventura Normal 03/29 prothrombin time (patient) 26.3 s Ingrid Ventura 03/01 international normalized ratio (INR) 2.7 Ingrid Ventura Normal 03/01 prothrombin time (patient) 32.2 s Ingrid Ventura 01/27 coagulation managed by Sterling Brar RN 01/27 international normalized ratio (INR) 2.6 Cecy Gruenenfelder Normal 01/27 prothrombin time (patient) 31.3 s Cecy Gruenenfelder 01/13 international normalized ratio (INR) 2.9 Cecy Gruenenfelder Normal 01/13 prothrombin time (patient) 34.7 s Cecy Gruenenfelder 12/30 international normalized ratio (INR) 1.9 Cecy Gruenenfelder Normal 12/30 prothrombin time (patient) 23.4 s Cecy Gruenenfelder 12/27 coagulation managed by tSerling Brar RN 12/27 international normalized ratio (INR) 1.9 Brandee Davis Normal 12/27 prothrombin time (patient) 23.1 s Brandee Davis 12/01 international normalized ratio (INR) 1.9 Cecy Gruenenfelder Normal 12/01 prothrombin time (patient) 23.2 s Cecy Gruenenfelder 10/28 coagulation managed by Sterling Brar RN 10/28 international normalized ratio (INR) 2.5 Cecy Gruenenfelder Normal 10/28 prothrombin time (patient) 29.5 s Cecy Gruenenfelder 10/01 coagulation managed by Sterling Brar RN 10/01 international normalized ratio (INR) 2.3 Cecy Gruenenfelder Normal 10/01 prothrombin time (patient) 27.0 s Cecy Gruenenfelder 09/03 coagulation managed by Sterling Brar RN 09/03 international normalized ratio (INR) 3.6 Brandee Davis Normal 09/03 prothrombin time (patient) 43.0 s Brandee Davis 10/07 international normalized ratio (INR) 1.6 Ingrid Ventura Normal 10/07 prothrombin time (patient) 19.3 s Ingrid Ventura 09/08 coagulation managed by Sterling Brar RN 09/08 international normalized ratio (INR) 2.4 Cecy Gruenenfelder Normal 09/08 prothrombin time (patient) 28.4 s Cecy Gruenenfelder 09/01 coagulation managed by Sterling Brar RN 09/01 international normalized ratio (INR) 2.6 Sterling Brar RN Normal 09/01 prothrombin time (patient) 31.1 s Sterling Brar RN international normalized ratio (INR) 2.9 Sterling Brar RN Normal prothrombin time (patient) 34.8 s Sterling Brar RN coagulation managed by Sterling Brar RN international normalized ratio (INR) 2.4 Sterling Brar RN Normal prothrombin time (patient) 28.5 s Sterling Brar RN 05/19 coagulation managed by Sterling Brar RN 05/19 international normalized ratio (INR) 3.1 Brandee Davis Normal 05/19 prothrombin time (patient) 37.6 s Brandee Davis 05/05 coagulation managed by Sterling Brar RN 05/05 international normalized ratio (INR) 2.7 Ingrid Ventura Normal 05/05 prothrombin time (patient) 32.7 s Ingrid Ventura 04/27 coagulation managed by Sterling Brar RN 04/27 international normalized ratio (INR) 3.6 Ingrid Ventura Normal 04/27 prothrombin time (patient) 43.2 s Ingrid Ventura 04/13 coagulation managed by Dea Quintana RN 04/13 international normalized ratio (INR) 2.8 Brandee Davis Normal 04/13 prothrombin time (patient) 33.9 s Brandee Davis 04/03 coagulation managed by Sterling Brar RN 04/03 international normalized ratio (INR) 1.5 Brandee Davis Normal 03/23 coagulation managed by Sterling Brar RN 03/23 international normalized ratio (INR) 1.4 Brandee Davis Normal 03/09 coagulation managed by Sterling Brar RN 03/09 international normalized ratio (INR) 3.7 Sterling Brar RN Normal 03/09 prothrombin time (patient) 44.6 s Sterling Brar RN 02/23 coagulation managed by Sterling Brar RN 02/23 international normalized ratio (INR) 3.9 Ingrid Ventura Normal 02/23 prothrombin time (patient) 47.4 s Ingrid Ventura 01/27 coagulation managed by Sterling Brar RN 01/27 international normalized ratio (INR) 2.6 Sterling Brar RN Normal 01/27 prothrombin time (patient) 31.3 s Sterling Brar RN 12/31 coagulation managed by Sterling Brar RN 12/31 international normalized ratio (INR) 1.9 Cecy Gruenenfelder Normal 12/31 prothrombin time (patient) 22.5 s Cecy Gruenenfelder 12/01 coagulation managed by Barbi Singh RN 12/01 international normalized ratio (INR) 2.3 Cecy Gruenenfelder Normal 12/01 prothrombin time (patient) 27.3 s Cecy Gruenenfelder 11/04 coagulation managed by Dea Quintana RN 11/04 international normalized ratio (INR) 2.0 Cecy Gruenenfelder Normal 11/04 prothrombin time (patient) 23.7 s Cecy Gruenenfelder 10/07 coagulation managed by Sterling Brar RN 10/07 international normalized ratio (INR) 2.3 Sterling Brar RN Normal 09/09 coagulation managed by Sterling Brar RN 09/09 international normalized ratio (INR) 2.4 Cecy Gruenenfelder Normal 09/09 prothrombin time (patient) 18.8 s Cecy Gruenenfelder 10/13 coagulation managed by Sterling Brar RN 10/13 international normalized ratio (INR) 2.3 Brandee Davis Normal 10/13 prothrombin time (patient) 27.7 s Brandee Davis 09/16 coagulation managed by Sterling Brar RN 09/16 international normalized ratio (INR) 2.4 Aneatris Brown Normal coagulation managed by Sterling Brar RN international normalized ratio (INR) 2.2 Aneatris Brown Normal 05/15 coagulation managed by Sterling Brar RN 05/15 international normalized ratio (INR) 2.6 Cecy Gruenenfelder Normal 05/15 prothrombin time (patient) 25.7 s Cecy Gruenenfelder 04/17 coagulation managed by Sterling Brar RN 04/17 international normalized ratio (INR) 1.9 Cecy Gruenenfelder Normal 04/17 prothrombin time (patient) 19.2 s Cecy Gruenenfelder 04/01 international normalized ratio (INR) 1.7 Cecy Gruenenfelder Normal 04/01 prothrombin time (patient) 16.8 s Cecy Gruenenfelder 03/04 coagulation managed by Sterling Brar RN 03/04 international normalized ratio (INR) 3.2 Cecy Gruenenfelder Normal 03/04 prothrombin time (patient) 32.3 s Cecy Gruenenfelder 02/04 coagulation managed by Sterling Brar RN 02/04 prothrombin time (patient) 28.3 s Cecy Gruenenfelder 02/04 international normalized ratio (INR) 2.8 Cecy Gruenenfelder Normal 01/09 coagulation managed by Sterling Brar RN 01/09 prothrombin time (patient) 20.7 s Cecy Gruenenfelder 01/09 international normalized ratio (INR) 2.1 Cecy Gruenenfelder Normal 12/10 coagulation managed by Sterling Brar RN 12/10 prothrombin time (patient) 21.1 s Sterling Brar RN 12/10 international normalized ratio (INR) 2.1 Sterling Brar RN Normal 11/13 prothrombin time (patient) 20.9 s Cecy Gruenenfelder 11/13 international normalized ratio (INR) 2.1 Cecy Gruenenfelder Normal 10/15 coagulation managed by Sterling Brar RN 10/15 prothrombin time (patient) 23.8 s Cecy Gruenenfelder 10/15 international normalized ratio (INR) 2.4 Cecy Gruenenfelder Normal 09/19 coagulation managed by Sterling Brar RN 09/19 prothrombin time (patient) 22.0 s Kristin Stueber 09/19 international normalized ratio (INR) 2.2 Kristin Stueber Normal 10/23 coagulation managed by Sterling Brar RN 10/23 prothrombin time (patient) 25.6 s Sterling Brar RN 10/23 international normalized ratio (INR) 2.6 Sterling Brar RN Normal 10/07 coagulation managed by Sterling Brar RN 10/07 prothrombin time (patient) 33.6 s Cecy Gruenenfelder 10/07 international normalized ratio (INR) 3.4 Cecy Gruenenfelder Normal 09/22 coagulation managed by Sterling Brar RN 09/22 prothrombin time (patient) 17.4 s Kristin Stueber 09/22 international normalized ratio (INR) 1.7 Kristin Stueber Normal coagulation managed by Sterling Brar RN prothrombin time (patient) 28.1 s Kristin Stueber international normalized ratio (INR) 2.8 Kristin Stueber Normal coagulation managed by Sterling Brar RN prothrombin time (patient) 22.5 s Denyean Devi international normalized ratio (INR) 2.3 Denyean Devi Normal 05/23 coagulation managed by Sterling Brar RN 05/23 prothrombin time (patient) 13.8 s Denyean Devi 05/23 international normalized ratio (INR) 1.4 Denyean Devi Normal 05/09 coagulation managed by Sterling Brar RN 05/09 prothrombin time (patient) 15.1 s Sterling Brar RN 05/09 international normalized ratio (INR) 1.5 Sterling Brar RN Normal 04/18 coagulation managed by Sterling Brar RN 04/18 prothrombin time (patient) 27.3 s Cecy Gruenenfelder 04/18 international normalized ratio (INR) 2.7 Cecy Gruenenfelder Normal 04/09 coagulation managed by Sterling Brar RN 04/09 prothrombin time (patient) 31.7 s Jessi Aidan 04/09 international normalized ratio (INR) 3.2 Jessi Aidan High 03/12 coagulation managed by Sterling Brar RN 03/12 prothrombin time (patient) 26.2 s Cecy Gruenenfelder 03/12 international normalized ratio (INR) 2.6 Cecy Gruenenfelder Normal 02/26 coagulation managed by Sterling Brar RN 02/26 prothrombin time (patient) 18.2 s Cecy Gruenenfelder 02/26 international normalized ratio (INR) 1.8 Cecy Gruenenfelder Normal 01/31 coagulation managed by Sterling Brar RN 01/31 prothrombin time (patient) 18.4 s Kristin Stueber 01/31 international normalized ratio (INR) 1.8 Kristin Stueber Normal 01/01 coagulation managed by Sterling Brar RN 01/01 prothrombin time (patient) 23.4 s Denyean Devi 01/01 international normalized ratio (INR) 2.3 Denyean Devi Normal 11/27 coagulation managed by Sterling Brar RN 11/27 prothrombin time (patient) 17.4 s Jesus Manacop 11/27 international normalized ratio (INR) 1.7 Jesus Manacop Normal 11/01 coagulation managed by Sterling Brar RN 11/01 prothrombin time (patient) 21.7 s Jesus Manacop 11/01 international normalized ratio (INR) 2.2 Jesus Manacop Normal 10/04 coagulation managed by Sterling Brar RN 10/04 prothrombin time (patient) 20.2 s Cecy Gruenenfelder 10/04 international normalized ratio (INR) 2.0 Cecy Gruenenfelder Normal 09/20 coagulation managed by Sterling Brar RN 09/20 prothrombin time (patient) 17.7 s Denyean Devi 09/20 international normalized ratio (INR) 1.8 Denyean Devi Normal 09/06 coagulation managed by Sterling Brar RN 09/06 prothrombin time (patient) 15.3 s Sterling Brar RN 09/06 international normalized ratio (INR) 1.5 Sterling Brar RN Normal 10/03 coagulation managed by Sterling Brar RN 10/03 prothrombin time (patient) 20.4 s Cecy Gruenenfelder 10/03 international normalized ratio (INR) 2.0 Cecy Gruenenfelder Normal 09/02 coagulation managed by Sterling Brar RN 09/02 prothrombin time (patient) 20.9 s Denyean Devi 09/02 international normalized ratio (INR) 2.1 Denyean Devi Normal coagulation managed by Sterling Brar RN prothrombin time (patient) 19.3 s Jesus Manacop international normalized ratio (INR) 1.9 Jesus Manacop Normal 05/08 coagulation managed by Sterling Brar RN 05/08 prothrombin time (patient) 23.8 s Denyean Devi 05/08 international normalized ratio (INR) 2.4 Denyean Devi Normal 04/11 coagulation managed by Sterling Brar RN 04/11 international normalized ratio (INR) 2.2 Sterling Brar RN 04/11 prothrombin time (patient) 22.1 s Sterling Brar RN 03/13 coagulation managed by Sterling Brar RN 03/13 international normalized ratio (INR) 2.0 Denyean Devi 03/13 prothrombin time (patient) 20.4 s Denyean Devi 02/13 coagulation managed by Sterling Brar RN 02/13 international normalized ratio (INR) 2.1 Denyean Devi 02/13 prothrombin time (patient) 21.3 s Denyean Devi 01/25 coagulation managed by Sterling Brar RN 01/25 international normalized ratio (INR) 3.4 Denyean Devi 01/25 prothrombin time (patient) 34.1 s Denyean Devi 12/28 coagulation managed by Sterling Brar RN 12/28 international normalized ratio (INR) 1.9 Sterling Brar RN 12/28 prothrombin time (patient) 19.4 s Sterling Brar RN 12/14 coagulation managed by Sterling Brar RN 12/14 international normalized ratio (INR) 3.3 Denyean Devi 12/14 prothrombin time (patient) 32.6 s Denyean Devi 11/16 coagulation managed by Sterling Brar RN 11/16 international normalized ratio (INR) 2.4 Denyean Devi 11/16 prothrombin time (patient) 24.2 s Denyean Devi 10/20 coagulation managed by Sterling Brar RN 10/20 international normalized ratio (INR) 2.3 Denyean Devi 10/20 prothrombin time (patient) 23.2 s Denyean Devi 10/06 coagulation managed by Sterling Brar RN 10/06 international normalized ratio (INR) 1.8 Sterling Brar RN 10/06 prothrombin time (patient) 17.5 s Sterling Brar RN 09/15 coagulation managed by Sterling Brar RN 09/15 international normalized ratio (INR) 1.9 Jesus Manacop 09/15 prothrombin time (patient) 18.8 s Jesus Manacop 10/19 coagulation managed by Sterling Brar RN 10/19 international normalized ratio (INR) 1.9 Denyean Devi 10/19 prothrombin time (patient) 19.3 s Denyean Devi 09/13 coagulation managed by Sterling Brar RN 09/13 international normalized ratio (INR) 2.3 Jesus Manacop 09/13 prothrombin time (patient) 23.3 s Jesus Manacop 08/29 coagulation managed by Sterling Brar RN 08/29 international normalized ratio (INR) 2.9 Jesus Manacop 08/29 prothrombin time (patient) 29.9 s Jesus Manacop coagulation managed by Sterling Brar RN international normalized ratio (INR) 2.1 Denyean Devi prothrombin time (patient) 20.8 s Denyean Devi 04/28 coagulation managed by Sterling Brar RN 04/28 international normalized ratio (INR) 2.4 Sherece Whitehorn MA 04/28 prothrombin time (patient) 28.3 s Sherece Whitehorn MA 04/14 coagulation managed by Sterling Brar RN 04/14 international normalized ratio (INR) 1.8 Sterling Brar RN 04/14 prothrombin time (patient) 18.0 s Sterling Brar RN 03/31 coagulation managed by Sterling Brar RN 03/31 international normalized ratio (INR) 1.8 Wilma O'Germain 03/31 prothrombin time (patient) 17.9 s Wilma O'Germain 03/03 international normalized ratio (INR) 2.1 Michelle Terry 03/03 prothrombin time (patient) 20.7 s Michelle Terry 01/31 coagulation managed by Sterling Brar RN 01/31 international normalized ratio (INR) 2.2 Wilma O'Germain 01/31 prothrombin time (patient) 22.4 s Wilma O'Germain 01/17 coagulation managed by Sterling Brar RN 01/17 international normalized ratio (INR) 3.5 Denyean Devi 01/17 prothrombin time (patient) 35.4 s Denyean Devi 01/03 coagulation managed by Sterling Brar RN 01/03 international normalized ratio (INR) 2.9 Sterling Brar RN 01/03 prothrombin time (patient) 29.0 s Sterling Brar RN 12/20 coagulation managed by Sterling Brar RN 12/20 international normalized ratio (INR) 2.7 Aziza Blunt 12/20 prothrombin time (patient) 26.7 s Aziza Blunt 12/09 coagulation managed by Sterling Brar RN 12/09 international normalized ratio (INR) 1.7 Denyean Devi 12/09 prothrombin time (patient) 16.7 s yean Devi 09/17 cholesterol/HDL ratio, serum 4.4 [facility] 09/17 triglyceride, serum, fasting 153 mg/dL [facility]09/17 HDL cholesterol, serum 48 mg/dL [facility] 09/17 cholesterol, serum 213 mg/dL [facility] 09/17 hemoglobin A1C, blood, as % of total hemoglobin 6.3 % 09/17 globulins, serum, total 2.8 g/dL [facility]09/17 protein, total, serum 7.2 g/dL [facility]09/17 albumin, serum 4.4 g/dL [facility] 09/17 bilirubin, serum, total 0.8 mg/dL [facility] 09/17 alkaline phosphatase, serum 52 1/L [facility] 09/17 gamma glutamyl transferase, serum 18 1/L [facility] 09/17 alanine aminotransferase (SGPT), serum 18 1/L [facility] 09/17 aspartate aminotransferase (SGOT), serum 19 1/L [facility] 09/17 blood glucose, fasting 120 mg/dL [facility]09/17 urea nitrogen, blood 18 mg/dL [facility] 09/17 HIV-1/HIV-2 Ab Negative [facility] 09/17 creatinine, random, urine 178.6 mg/dL [facility]09/17 albumin/creatinine ratio, urine 3.3 mg/g{creat} Denetrist Sabas 09/17 microalbumin/total urine volume 0.6 mg/L Denetraleah Obregon 09/17 leukocyte esterase, urine, by dipstick Negative Denetrist Sabas 09/17 hemoglobin, blood 16.4 g/dL Denetrist Sabas 09/17 prostate specific antigen 3.89 ng/mL Guyetraleah Obregon 11/08 coagulation managed by Sterling Brar RN 11/08 international normalized ratio (INR) 2.1 Wilma O'Germain 11/08 prothrombin time (patient) 21.2 s Wilma O'Germain 10/11 coagulation managed by Sterling Brar RN 10/11 international normalized ratio (INR) 1.9 Denyean Devi 10/11 prothrombin time (patient) 18.9 s Denyean Devi 09/27 coagulation managed by Sterling Brar RN 09/27 international normalized ratio (INR) 1.4 Denyean Devi 09/27 prothrombin time (patient) 13.7 s Denyean Devi 09/13 coagulation managed by Sterling Brar RN 09/13 international normalized ratio (INR) 1.7 Wilma O'Germain 09/13 prothrombin time (patient) 16.8 s Wilma O'Germain 10/14 coagulation managed by tSerling Brar RN 10/14 international normalized ratio (INR) 2.3 Sterling Brar RN 10/14 prothrombin time (patient) 22.7 s Sterling Brar RN 09/11 coagulation managed by Sterling Brar RN 09/11 international normalized ratio (INR) 2.2 Aziza Blunt 09/11 prothrombin time (patient) 21.8 s Aziza Blunt coagulation managed by Sterling Brar RN international normalized ratio (INR) 2.0 Wilma O'Germain prothrombin time (patient) 20.0 s Wilma O'Germain 05/10 coagulation managed by Sterling Brar RN 05/10 international normalized ratio (INR) 1.8 Sterling Brar RN 05/10 prothrombin time (patient) 18.6 s Sterling Brar RN 04/22 coagulation managed by Sterling Brar RN 04/22 international normalized ratio (INR) 1.6 Brandi York 04/22 prothrombin time (patient) 16.1 s Brandi York 03/24 coagulation managed by Dea Quintana RN 03/24 international normalized ratio (INR) 2.1 Jessi Bermudez 03/24 prothrombin time (patient) 20.6 s Jessi Bermudez 02/25 international normalized ratio (INR) 1.8 Jesus Manacop 02/25 prothrombin time (patient) 18.1 s Jesus Manacop 02/08 coagulation managed by Sterling Brar RN 02/08 international normalized ratio (INR) 2.9 Sterling Brar RN 02/08 prothrombin time (patient) 28.6 s Sterling Brar RN 01/21 coagulation managed by Sterling Brar RN 01/21 international normalized ratio (INR) 1.5 Tamera Ruiz 01/21 prothrombin time (patient) 15.2 s Tamera Ruiz 12/31 international normalized ratio (INR) 1.9 Tamera Ruiz 12/31 prothrombin time (patient) 19.0 s Tamera Ruiz 11/05 coagulation managed by Sterling Lee Manacop 11/05 international normalized ratio (INR) 2.0 Jesus Manacop 11/05 prothrombin time (patient) 20.3 s Jesus Manacop 10/08 coagulation managed by Sterling Brar RN 10/08 international normalized ratio (INR) 2.3 Sterling Brar RN 10/08 prothrombin time (patient) 23.0 s Sterling Brar RN 09/10 coagulation managed by Sterling Brar RN 09/10 international normalized ratio (INR) 1.9 Sterling Brar RN 09/10 prothrombin time (patient) 18.7 s Sterling Brar RN 10/14 coagulation managed by Sterling Brar RN 10/14 international normalized ratio (INR) 2.0 Jesus Manacop 10/14 prothrombin time (patient) 19.6 s Jesus Manacop 09/07 coagulation managed by Sterling Brar RN 09/07 international normalized ratio (INR) 2.4 Sterling Brar RN 09/07 prothrombin time (patient) 23.9 s Sterling Brar RN coagulation managed by Dea Quintana RN international normalized ratio (INR) 2.3 Jesus Manacoedvin prothrombin time (patient) 23.4 s Jesus Manacop 05/14 coagulation managed by Sterling Brar RN 05/14 international normalized ratio (INR) 2.8 Sterling Brar RN 05/14 prothrombin time (patient) 27.5 s Sterling Brar RN 04/24 international normalized ratio (INR) 3.3 Jessi Bermudez 04/24 prothrombin time (patient) 32.5 s Jessi Bermudez 03/27 international normalized ratio (INR) 2.5 Jessi Bermudez 03/27 prothrombin time (patient) 25.4 s Jessi Bermudez 02/26 digoxin level, serum 1.0 ng/mL [employer] 0.8-2.0 Normal 02/26 coagulation managed by Sterling Brar RN 02/26 international normalized ratio (INR) 3.0 Sterling Brar RN 02/26 prothrombin time (patient) 29.8 s Sterling Brar RN 01/22 coagulation managed by Sterling Brar RN 01/22 international normalized ratio (INR) 2.6 Sterling Brar RN 01/22 prothrombin time (patient) 25.9 s Sterling Brar RN 12/25 coagulation managed by Sterling Brar RN 12/25 international normalized ratio (INR) 3.1 Sterling Brar RN 12/25 prothrombin time (patient) 31.1 s Sterling Brar RN 11/20 coagulation managed by Sterling Brar RN 11/20 international normalized ratio (INR) 2.6 Sterling Brar RN 11/20 prothrombin time (patient) 26.1 s Sterling Brar RN 10/23 coagulation managed by Sterling Brar Sterling Brar RN 10/23 international normalized ratio (INR) 2.6 Sterling Brar RN 10/23 prothrombin time (patient) 26.0 s Sterling Brar RN 09/25 coagulation managed by Sterling Brar Sterling Brar RN 09/25 international normalized ratio (INR) 2.0 Sterling Brar RN 09/25 prothrombin time (patient) 19.6 s Sterling Brar RN 09/11 coagulation managed by Sterling Brar Sterling Brar RN 09/11 international normalized ratio (INR) 1.6 Sterling Brar RN 09/11 prothrombin time (patient) 16.3 s Sterling Brar RN 10/14 coagulation managed by Sterling Brar Sterling Brar RN 10/14 international normalized ratio (INR) 2.0 Sterling Brar RN 10/14 prothrombin time (patient) 19.7 s Sterling Brar RN 10/01 coagulation managed by Sterling Brar Sterling Brar RN 10/01 international normalized ratio (INR) 3.9 Sterling Brar RN 10/01 prothrombin time (patient) 39.4 s Sterling Brar RN 09/02 coagulation managed by Sterling Brar Sterling Brar RN 09/02 international normalized ratio (INR) 2.5 Sterling Brar RN 09/02 prothrombin time (patient) 24.9 s Sterling Brar RN coagulation managed by Sterling Brar Sterling Brar RN international normalized ratio (INR) 2.5 Sterling Brar RN prothrombin time (patient) 25.2 s Sterlnig Brar RN coagulation managed by Sterling Brar Sterling Brar RN international normalized ratio (INR) 2.1 Sterling Brar RN prothrombin time (patient) 20.5 s Sterling Brar RN coagulation managed by Sterling Brar Sterling Brar RN international normalized ratio (INR) 3.6 Sterling Brar RN 0 prothrombin time (patient) 36.3 s Sterling Brar RN 0 coagulation managed by Sterling Brar TAYLOR international normalized ratio (INR) 1.9 Sterling Brar RN prothrombin time (patient) 18.9 s Sterling Brar RN 0 hematocrit, blood 40.3 % Dea Quintana RN 0 hemoglobin, blood 13.6 g/dL Dea Quintana RN 0 magnesium, serum 1.9 mg/dL Dea Quintana RN 0 creatinine, serum 1.15 mg/dL Dea [place] TAYLOR 0 urea nitrogen, blood 18 mg/dL Dea [place] TAYLOR 0 potassium, serum 3.6 mmol/L Dea [place] TAYLOR 0 sodium, serum 144 mmol/L Dea [place] TAYLOR 0 coagulation managed by Sterling Brar TAYLOR 0 international normalized ratio (INR) 4.2 Leslie Coffey MA 0 prothrombin time (patient) 42.2 s Leslie Coffey MA HISTORY OF MEDICATION USE Medication Status Instructions Dates Provider Indications Com ments carvedilol 25 mg tablet active TAKE 1 TABLET BY MOUTH TWICE DAILY 9 Corry Arnold warfarin 1 mg tablet active Take 1/2 tablet by mouth as directed Take with 3 mg tablet to = 3.5 mg On MON,WED, and FRI ONLY 2 Luis Chacon MD warfarin 3 mg tablet active Take 1 tablet by mouth once a day Except for MON,WED, and FRI take one 3 mg tablet with (1/2) of a 1 mg tablet to = 3.5 mg 2 Consuelo Pérez RN warfarin 3 mg tablet completed TAKE 1 TABLET BY MOUTH EVERY DAY IN THE EVENING 2 - 2 Consuelo Pérez RN lisinopril-hydr ochlorothiazide 20-12.5 mg tablet active TAKE 2 TABLETS BY MOUTH EVERY DAY 2 Halima Fox warfarin 1 mg tablet completed TAKE 1/2 TABLET BY MOUTH ON MONDAY AND MONDAY EVENING WITH 3MG TABLETS 9 - 2 Consuelo Pérez RN warfarin 1 mg tablet completed take 1/2 tab with 3mg tab on Tu only = 3.5mg 5 - 9 Corry Arnold warfarin 1 mg tablet completed - 5 Sterling Brar RN carvedilol 25 mg tablet completed Take 1 tablet by mouth twice a day Take 1 tablet by mouth twice daily 9 - 9 Corry Arnold lisinopril-hydr ochlorothiazide 20-12.5 mg tablet completed Take 2 tablet by mouth once a day Take 2 tablets by mouth once daily 9 - 2 Brandin Jaciel warfarin 3 mg tablet completed TAKE 1 TABLET BY MOUTH ONCE DAILY IN THE EVENING. 0 - 2 Paola Ross RN warfarin 1 mg tablet completed Take 1/2 tablet by mouth every evening ON MON and with 3 mg tab to = 3.5 mg 5 - 0 Consuelo Pérez RN carvedilol 25 mg tablet completed Take 1 tablet by mouth twice daily 7 - 9 Consuelo Pérez RN lisinopril-hydr ochlorothiazide 20-12.5 mg tablet completed Take 2 tablets by mouth once daily 7 - 9 Consuelo Pérez RN warfarin 3 mg tablet completed Take 1 tablet by mouth every evening EXCEPT FOR TUE and FRI take 3mg with a 1/2 of a 1 mg tab to = 3.5 mg 6 - 5 Consuelo Pérez RN warfarin 3 mg tablet completed Take 1 tablet by mouth every evening TAKE 1 TABLET BY MOUTH DAILY IN THE EVENING EXCEPT ON SUNDAYS TAKE 1.5 TABLETS 5 - 6 Tri Adhikari RN warfarin 3 mg tablet completed TAKE 1 TABLET BY MOUTH DAILY IN THE EVENING EXCEPT ON SUNDAYS TAKE 1.5 TABLETS 4 - 5 Consuelo Pérez RN warfarin 3 mg tablet completed Take 1 tablet by mouth every evening Except Tue and Fri take one and a half tab. 1 1/2 tabs to make 4.5 mg 7 - 4 Paola Ross RN warfarin 3 mg tablet completed TAKE 1 TABLET BY MOUTH EVERY EVENING EXCEPT ON SUNDAYS TAKE 1 AND 1/2 TABLETS (4.5 MG) 8 - 7 Consuelo Pérez RN warfarin 3 mg tablet completed Take 1 tablet by mouth every evening except on Sundays take 1&1/2 tabs (4.5MG) 8 - 8 Consuelo Pérez RN warfarin 3 mg tablet completed one tab daily except on Tues and Fri take 1 1/2 tab - 8 Sterling Brar RN warfarin 3 mg tablet completed TAKE 1 TABLET BY MOUTH ONCE DAILY, ADDING 1/2 ADDITIONAL TABLET ON MONDAY AND MONDAY INSTEAD OF 4MG TABLET 8 - 8 Consuelo Pérez RN COUMADIN 3 MG ORAL TABLET completed Take 1 tablet by mouth once a day as directed add 1/2 tab on Tues and Fri 1 - 6 Consuelo Pérez RN COUMADIN 3 MG ORAL TABLET completed Take 1 tablet by mouth once a day as directed add 1/2 tab on Tues and Thurs only 1 - 1 Sterling Brar RN COUMADIN 4 MG ORAL TABLET completed Take 1 tablet by mouth every night 6 - 6 Sterling Brar RN warfarin 3 mg tablet completed Take 1 tablet by mouth once a day as directed except on Tues and Fri take 1 1/2 tab 6 - 4 Consuelo Pérez RN warfarin 3 mg tablet completed Take 1 tablet by mouth once a day as directed except on Tues and Fri take 1 1/2 tab 1 - 6 Sterling Brar RN COUMADIN 3 MG ORAL TABLET completed Take 1 tablet by mouth once a day as directed add 1/2 tab on Tues and Thurs only 0 - 1 Sterling Brar RN WARFARIN SODIUM 4 MG ORAL TABLET completed hold 2 - 5 Corry Clayton warfarin 3 mg tablet completed Take 1 tablet by mouth once a day 1 - 0 Jacquie Hayes ASPIRIN ADULT LOW DOSE 81 MG ORAL TABLET DELAYED RELEASE completed One Tab By Mouth Daily - 6 Kalyani Pérez COUMADIN 4 MG ORAL TABLET completed [id number] Sat -Sun 7 - 0 Tri Adhikari RN COUMADIN 3 MG ORAL TABLET completed one tab on , , 7 - 0 Tri Adhikari RN COUMADIN 4 MG ORAL TABLET completed Take 1 tab daily 4 - 7 Sterling Brar RN COUMADIN 4 MG ORAL TABLET completed TAKE DIRECTED 4 - 1 Sterling Brar RN COUMADIN 5 MG ORAL TABLET completed One tab Sat-Sun 3 - 4 Sterling Diaz RN COUMADIN 4 MG ORAL TABLET completed one tab on Mon-Sat and Sun; take w/your evening meal 0 - 9 Sterling Brar RN COUMADIN 3 MG ORAL TABLET completed one tab Mon through Mon 3 - 4 Sterling Diaz RN COUMADIN 4 MG ORAL TABLET completed twice weekly - 0 Sterling Brar RN COUMADIN 1 MG ORAL TABLET completed one tab with 3mg every 3rd day - 5 Sterling Brar RN COUMADIN 3 MG ORAL TABLET completed one tab every other day - 6 Sterling Brar RN COUMADIN 4 MG ORAL TABLET completed one tab daily - 0 Sterling Brar RN JANTOVEN 4 MG ORAL TABLET completed take one pill a day 9 - 2 Sterling Brar RN COUMADIN 4 MG ORAL TABLET completed one 4mg tablet mon, , mon and one 2mg tablet mon, mon, monday, monday - 2 Sterling Brar RN JANTOVEN 4 MG ORAL TABLET completed one tab every other day - 7 Sterling Brar RN COUMADIN 4 MG ORAL TABLET completed One tab Sat and Sun - 1 Sterling Brar RN COUMADIN TABLET completed 3mg daily m-sat - 6 Jesus Cunha DIGOXIN 250 MCG ORAL TABLET completed one tab daily 6 - 6 Jesus Cunha JANTOVEN 3 MG ORAL TABLET completed on Kdp-Ifa-Sxf-Sat and Sun - 6 Sterling Brar RN COUMADIN 4 MG ORAL TABLET completed TAKE ONE TABLET BY MOUTH EVERY EVENING 3 - 4 Sterling Brar RN lisinopril-hydr ochlorothiazide 20-12.5 mg tablet completed Take 2 tablet by mouth once a day 3 - 7 Gloria Yoon carvedilol 25 mg tablet completed Take 1 tablet by mouth twice a day 6 - 7 Gloria Yoon SOCIAL HISTORY Date Observation Value Provider drug use no Luis Chacon MD alcohol use, average drinks per day social Luis Chacon MD alcohol use yes Luis Chacon MD passive cigarette sm tu exposure no Luis Chacon MD smoking status Never smoker Luis Chacon MD drug use no Luis Chacon MD alcohol use, average drinks per day social Luis Chacon MD alcohol use yes Luis Chacon MD passive cigarette sm tu exposure no Luis Chacon MD smoking status Never smoker Luis Chacon MD social history E&M Marital Statu s: Flavio noble with family/friends E thnicity: P rajinder has never smoked. Smoking History: Edvin calvillo has never smoked. Luis Chacon MD social history reviewed E&M revi ewed - no changes required Luis Chacon MD physical exercise, f requency, days per week no Gloria Yoon caffeine use, averag e drinks per day yes Gloria Yoon passive cigarette sm tu exposure no Gloria Yoon smoking status Never smoker Gloria Reyes and social history E&M Marital Statu s: L real with family/friends E thnicity: P atluisa has never smoked. Smoking History: P atient has never smoked. Bianka Kaiser WORKMAN physical exercise, f requency, days per week no Bianka Saab PROPERTY ASSISTANT caffeine use, averag e drinks per day yes Bianka Kaiser WORKMAN passive cigarette sm tu exposure no Bianka Saab PROPERTY ASSISTANT smoking status Never smoker Bianka Montgomery in PROPERTY ASSISTANT social history reviewed E&M revi ewed - no changes required Bianka Saab NP alcohol use, average drinks per day social Luis Chacon MD alcohol use yes Luis Chacon MD social history E&M Marital Statu s: L real with family/friends E thnicity: P atluisa has never smoked. Smoking History: P atluisa has never smoked. Luis Chacon MD social history reviewed E&M revi ewed - no changes required Luis Chacon MD smoking status Never smoker Kalyani Parker [facility] social history E&M Marital Statu s: L real with family/friends E thnicity: P rajinder has never smoked. Smoking History: P atluisa has never smoked. Luis Chacon MD social history reviewed E&M revi ewed - no changes required Luis Chacon MD physical exercise, f requency, days per week no Cecy Uribe alcohol use, average drinks per day social Cecy Uribe alcohol use yes Cecy dickerson caffeine use, averag e drinks per day yes Cecy Uribe drug use no Cecy dickerson passive cigarette sm tu exposure no Cecy Uribe smoking status Never smoker Cecy fonseca number of grandchildren Luis Chacon MD U handy Chacon MD social history reviewed E&M revi ewed - no changes required Luis Chacon MD physical exercise, f requency, days per week no Ingrid Ventura alcohol use, average drinks per day social Ingrid Ventura alcohol use yes Ingrid Morales latoshaon caffeine use, averag e drinks per day yes Ingrid Ventura drug use no Ingrid Morales latoshacourtney passive cigarette sm tu exposure no Ingrid Ventura smoking status Never smoker Ingrid Jordan shant social history reviewed E&M revi ewed - no changes required Luis Chacon MD physical exercise, f requency, days per week no Ingrid Lorenzo alcohol use, average drinks per day social Ingrid Ventura alcohol use yes Ingrid Morales latoshacourtney caffeine use, averag e drinks per day yes Ingrid Ventura drug use no Ingrid Morales latoshacourtney passive cigarette sm tu exposure no Ingrid Ventura smoking status Never smoker Ingrid Gonsalves social history reviewed E&M revi ewed - no changes required Luis Chacon MD physical exercise, f requency, days per week no Brandee Davis alcohol use, average drinks per day social Brandee Dvais alcohol use yes Brandee Davis caffeine use, averag e drinks per day yes Brandee Davis drug use no Brandee Davis passive cigarette sm tu exposure no Brandee Davis smoking status Never smoker Brandee An ashton social history E&M Marital Statu s: L real with family/friends E thnicity: P rajinder has never smoked. Smoking History: P rajinder has never smoked. Bianka Haskins NP social history reviewed E&M revi ewed - no changes required Bianka Haskins NP alcohol use, average drinks per day social Cecy Armstrongiris alcohol use yes Cecy Roberto alonsoer smoking status Never smoker Bianka martinez NP social history reviewed E&M reviewed Luis Chacon MD drug use no Cecy Roberto alonsoer passive cigarette sm tu exposure no Cecy Yundimitri smoking status never smoker Cecy Yuneric fonseca social history reviewed E&M reviewed Sterling Brar RN social history reviewed E&M reviewed Sterling Brar RN social history reviewed E&M reviewed Sterling Brar RN social history reviewed E&M reviewed Luis Chacon MD social history reviewed E&M reviewed Luis Chacon MD social history reviewed E&M reviewed Sterling Brar RN social history reviewed E&M reviewed Sterling Brar RN social history reviewed E&M reviewed Sterling Brar RN social history E&M Marital Statu s: L real with family/friends E thnicity: Sterling Brar RN social history reviewed E&M reviewed Sterling Brar RN social history reviewed E&M reviewed Luis Chacon MD drug use none Luis Chacon MD social history reviewed E&M reviewed Luis Chacon MD physical exercise, f requency, days per week no [employer] caffeine use, averag e drinks per day yes [employer] alcohol use, average drinks per day none [employer] smoking status Non-smoker [employer] MENTAL STATUS Date Observation Value Provider assessment of judgme nt and insight E&M Alert and oriented to time, place and person. Mood and affect are normal. Luis Chacon MD assessment of judgme nt and insight E&M Alert and oriented to time, place and person. Mood and affect are normal. Sterling Brar RN assessment of judgme nt and insight E&M Alert and oriented to time, place and person. Mood and affect are normal. Sterling Brar RN assessment of judgme nt and insight E&M Alert and oriented to time, place and person. Mood and affect are normal. Sterling Brar RN assessment of judgme nt and insight E&M Alert and oriented to time, place and person. Mood and affect are normal. Luis Chacon MD assessment of judgme nt and insight E&M Alert and oriented to time, place and person. Mood and affect are normal. Luis Chacon MD assessment of judgme nt and insight E&M Alert and oriented to time, place and person. Mood and affect are normal. Sterling Brar RN assessment of judgme nt and insight E&M Alert and oriented to time, place and person. Mood and affect are normal. Setrling Brar RN assessment of judgme nt and insight E&M Alert and oriented to time, place and person. Mood and affect are normal. Sterling Brar RN assessment of judgme nt and insight E&M Alert and oriented to time, place and person. Mood and affect are normal. Sterling Brar RN assessment of judgme nt and insight E&M Alert and oriented to time, place and person. Mood and affect are normal. Luis Chacon MD assessment of judgme nt and insight E&M Alert and oriented to time, place and person. Mood and affect are normal. Luis Chacon MD FAMILY HISTORY Family Member Condition Mother Family History of Di abetes: Father Family History of Armstrong dden Cardiac : INSURANCE PROVIDERS Payer name Policy type / Coverage type Endy red republican [employer] Other 1 [id number] [place] [employer] Medicare [id number] ADVANCE DIRECTIVES Name Date DISCUSSED - NO DECISION MADE TREATMENT PLAN Date Name Performer [id number],S, B P today: 138/119 P rior BP: 173/104 (01/13/2022) His updated medication list for this problem includes: Lisinopril-hydrochlorothiazide 20-12.5 Mg Tablet (Lisinopril-hydrochlorothiazide) ..... Take 2 tablet by mouth once a day Carvedilol 25 Mg Tablet (Carvedilol) ..... Take 1 tablet by mouth twice a day Luis Chacon MD [id number],S, R emains in afib. Denies palpitations. Continues on warfarin. Luis Chacon MD [id number],S, R emains in afib. Denies palpitations. Continues on warfarin. Luis Chacon MD [id number],S, N o SOB. Mild on most recent echo 05/2019. We'll get a new echo done soon. Luis Chacon MD [id number],S, N o SOB. Mild on most recent echo 05/2019. Bianka Saab NP [id number],S, U sually well controlled at home. BP today: 161/80 P rior BP: 132/90 (04/19/2018) His updated medication list for this problem includes: Lisinopril-hydrochlorothiazide 20-12.5 Mg Tablet (Lisinopril-hydrochlorothiazide) ..... Take 2 tablet by mouth once a day Carvedilol 25 Mg Tablet (Carvedilol) ..... Take 1 tablet by mouth twice a day Bianka Saab NP [id number],S, D enies palpitations. Continues on warfarin. Will check a 24-hr holter. Bianka Saab NP Cardiology:on AC wot h coumadin T his visit has been a part of the consistent, comprehensive, and ongoing management of the chronic medical condition(s) listed above for the patient. Luis Chacon MD Cardiology: H is updated medication list for this problem includes: Lisinopril-hydrochlorothiazide 20-12.5 Mg Tablet (Lisinopril-hydrochlorothiazide) ..... Take 2 tablets by mouth every day Carvedilol 25 Mg Tablet (Carvedilol) ..... Take 1 tablet by mouth twice a day take 1 tablet by mouth twice daily BP today: 167/93 P rior BP: 150/94 (09/21/2023) Labs Reviewed: Creat: 1.15 (06/02/2008) C hol: 213 (09/17/2010) HDL: 48 (09/17/2010) T (09/17/2010) Luis Chacon MD Cardiology:on AC wot h coumadin Luis Chacon MD Cardiology:Check fol low up echo M oderate on most recent echo Luis Chacon MD Cardiology Luis Chacon MD Cardiology:on warfarin for AC Us nadia Chacon MD Cardiology: H is updated medication list for this problem includes: Carvedilol 25 Mg Tablet (Carvedilol) ..... Take 1 tablet by mouth twice a day take 1 tablet by mouth twice daily Lisinopril-hydrochlorothiazide 20-12.5 Mg Tablet (Lisinopril-hydrochlorothiazide) ..... Take 2 tablet by mouth once a day take 2 tablets by mouth once daily BP today: 150/94 P rior BP: 138/119 (09/22/2022) Labs Reviewed: C reat: 1.15 (06/02/2008) C hol: 213 (09/17/2010) HDL: 48 (09/17/2010) T (09/17/2010) Luis Chacon MD Cardiology:check echo, last LG 1 cm2 Luis Chacon MD Cardiology: B P today: 138/119 P rior BP: 173/104 (01/13/2022) His updated medication list for this problem includes: Lisinopril-hydrochlorothiazide 20-12.5 Mg Tablet (Lisinopril-hydrochlorothiazide) ..... Take 2 tablet by mouth once a day Carvedilol 25 Mg Tablet (Carvedilol) ..... Take 1 tablet by mouth twice a day Luis Chacon MD Cardiology: R emains in afib. Denies palpitations. Continues on warfarin. Luis Chacon MD Cardiology: R emains in afib. Denies palpitations. Continues on warfarin. Luis Chacon MD Cardiology: N o SOB. Mild on most recent echo 05/2019. We'll get a new echo done soon. Luis Chacon MD Cardiology: N o SOB. Mild on most recent echo 05/2019. Bianka Saab NP Cardiology: U sually well controlled at home. BP today: 161/80 P rior BP: 132/90 (04/19/2018) His updated medication list for this problem includes: Lisinopril-hydrochlorothiazide 20-12.5 Mg Tablet (Lisinopril-hydrochlorothiazide) ..... Take 2 tablet by mouth once a day Carvedilol 25 Mg Tablet (Carvedilol) ..... Take 1 tablet by mouth twice a day Bianka Saab NP Cardiology: D enies palpitations. Continues on warfarin. Will check a 24-hr holter. Bianka Saab NP Cardiology Luis Chacon MD Cardiology:Will repe at his echo and 24 hour Holter. No changes. Luis Chacon MD Cardiology:Today's B P: 130/87 P rior BP: 132/90 (04/19/2018) Labs Reviewed: C reat: 1.15 (06/02/2008) C hol: 213 (09/17/2010) HDL: 48 (09/17/2010) T (09/17/2010) Luis Chacon MD Cardiology Follow up Luis mendez MD Cardiology Follow up :Rate is well-controlled. Will repeat a ZIO. Will stop Aspirin 81mg daily because he does not have concommittant CAD and has not had a TIA or CVA Luis Chacon MD Cardiology Follow up : B P today: 132/90 P rior BP: 140/80 (07/31/2017) Labs Reviewed: C reat: 1.15 (06/02/2008) C hol: 213 (09/17/2010) HDL: 48 (09/17/2010) T (09/17/2010) Luis Chacon MD Cardiology: M oderate LAE per TTE (03/30/2015) Luis Chacon MD Cardiology:Normally well controlled according to patient. Will have him record his BPs at home. BP today: 154/81 P rior BP: 156/80 (04/22/2016) Labs Reviewed: C reat: 1.15 (06/02/2008) C hol: 213 (09/17/2010) HDL: 48 (09/17/2010) T (09/17/2010) Luis Chacon MD Cardiology: Gabbi smith in AFib. continue coumadin and maintain INR 2-3. Luis Chacon MD Cardiology:with CVR. continue coumadin and maintain INR 2-3. Luis Chacon MD Cardiology:156/80 is a little high but he states it normally runs better. Luis Chacon MD Cardiology:Moderate LAE per TTE (03/30/2015) Luis Chacon MD Cardiology:BP 150/88 Luis mendez MD Cardiology:Holter re port (03/30/2015) R hythm: Atrial Fibrillation A VG HR 85bpm with MAX HR of 124bpm, MIN HR 61bpm 5 ventricular ectopics were noted as 5 isolate beats Luis Chacon MD Follow up :BP 140/90 His updated medication list for this problem includes: Coreg 25 Mg Tabs (Carvedilol) ..... One tab. twice daily Lisinopril-hydrochlorothiazide 20-12.5 Mg Tabs (Lisinopril-hydrochlorothiazide) ..... 2 tabs a day Bianka Haskins NP Follow up: H is updated medication list for this problem includes: Coreg 25 Mg Tabs (Carvedilol) ..... One tab. twice daily Lisinopril-hydrochlorothiazide 20-12.5 Mg Tabs (Lisinopril-hydrochlorothiazide) ..... 2 tabs a day Coumadin 4 Mg Tabs (Warfarin sodium) ..... One 4mg tablet tue, thurs, sat and one 2mg tablet mon, mon, monday, monday Jantoven 4 Mg Tabs (Warfarin sodium) ..... Take one pill a day Orders: C omplete Echo ([id number]) H olter Monitor 24 Hr ([id number]) Luis Chacon MD Follow up: H is updated medication list for this problem includes: Coreg 25 Mg Tabs (Carvedilol) ..... One tab. twice daily Lisinopril-hydrochlorothiazide 20-12.5 Mg Tabs (Lisinopril-hydrochlorothiazide) ..... 2 tabs a day Coumadin 4 Mg Tabs (Warfarin sodium) ..... One 4mg tablet tue, thurs, sat and one 2mg tablet mon, mon, monday, monday Jantoven 4 Mg Tabs (Warfarin sodium) ..... Take one pill a day Orders: Blas KG ([id number]) Luis Chacon MD Follow up: H is updated medication list for this problem includes: Coreg 25 Mg Tabs (Carvedilol) ..... One tab. twice daily Lisinopril-hydrochlorothiazide 20-12.5 Mg Tabs (Lisinopril-hydrochlorothiazide) ..... 2 tabs a day Coumadin 4 Mg Tabs (Warfarin sodium) ..... One 4mg tablet tue, thurs, sat and one 2mg tablet mon, mon, monday, monday Jantoven 4 Mg Tabs (Warfarin sodium) ..... Take one pill a day Luis Chacon MD follow up Luis Chacon MD follow up:He will ke ep an eye on it. H is updated medication list for this problem includes: Coreg 25 Mg Tabs (Carvedilol) ..... One tab. twice daily Lisinopril-hydrochlorothiazide 20-12.5 Mg Tabs (Lisinopril-hydrochlorothiazide) ..... 2 tabs a day BP today: 161/99 P rior BP: 145/75 (10/06/2011) Labs Reviewed: C reat: 1.15 (06/02/2008) C hol: 213 (09/17/2010) HDL: 48 (09/17/2010) T (09/17/2010) Luis Chacon MD :he has afib and is average hr is 80 bpm c ontinue his current regimen. His updated medication list for this problem includes: Coreg 25 Mg Tabs (Carvedilol) ..... One tab. twice daily Lisinopril-hydrochlorothiazide 20-12.5 Mg Tabs (Lisinopril-hydrochlorothiazide) ..... 2 tabs a day Jantoven 3 Mg Tabs (Warfarin sodium) ..... One tab every other day to alternate with 4mg Coumadin 4 Mg Tabs (Warfarin sodium) ..... One tab every other to alternate with 3mg Luis Chacon MD : H is updated medication list for this problem includes: Coreg 25 Mg Tabs (Carvedilol) ..... One tab. twice daily Lisinopril-hydrochlorothiazide 20-12.5 Mg Tabs (Lisinopril-hydrochlorothiazide) ..... 2 tabs a day BP today: 145/75 P rior BP: 128/70 (03/31/2011) Labs Reviewed: C reat: 1.15 (06/02/2008) C hol: 213 (09/17/2010) HDL: 48 (09/17/2010) T (09/17/2010) Luis Chacon MD routine:afib with cv r e cho done b iatrial enlargement but has good lv function. H is updated medication list for this problem includes: Coreg 25 Mg Tabs (Carvedilol) ..... One tab. twice daily Lisinopril-hydrochlorothiazide 20-12.5 Mg Tabs (Lisinopril-hydrochlorothiazide) ..... 2 tabs a day Jantoven 3 Mg Tabs (Warfarin sodium) ..... Mon through sat Coumadin 4 Mg Tabs (Warfarin sodium) ..... On irvin Chacon MD routine: H is updated medication list for this problem includes: Coreg 25 Mg Tabs (Carvedilol) ..... One tab. twice daily Lisinopril-hydrochlorothiazide 20-12.5 Mg Tabs (Lisinopril-hydrochlorothiazide) ..... 2 tabs a day Jantoven 3 Mg Tabs (Warfarin sodium) ..... Mon through sat Coumadin 4 Mg Tabs (Warfarin sodium) ..... On irvin Chacon MD routine: H is updated medication list for this problem includes: Coreg 25 Mg Tabs (Carvedilol) ..... One tab. twice daily Lisinopril-hydrochlorothiazide 20-12.5 Mg Tabs (Lisinopril-hydrochlorothiazide) ..... 2 tabs a day BP today: 128/70 P rior BP: 158/96 (09/02/2010) Labs Reviewed: C reat: 1.15 (06/02/2008) C hol: 213 (09/17/2010) HDL: 48 (09/17/2010) T (09/17/2010) Luis Chacon MD routine:excellent co ntrol H is updated medication list for this problem includes: Coreg 25 Mg Tabs (Carvedilol) ..... One tab. twice daily Lisinopril-hydrochlorothiazide 20-12.5 Mg Tabs (Lisinopril-hydrochlorothiazide) ..... 2 tabs a day BP today: 128/70 P rior BP: 158/96 (09/02/2010) Labs Reviewed: C reat: 1.15 (06/02/2008) C hol: 213 (09/17/2010) HDL: 48 (09/17/2010) T (09/17/2010) Luis Chacon MD 6mo follow up: H is updated medication list for this problem includes: Coreg 25 Mg Tabs (Carvedilol) ..... One tab. twice daily Lisinopril-hydrochlorothiazide 20-12.5 Mg Tabs (Lisinopril-hydrochlorothiazide) ..... 2 tabs a day Jantoven 3 Mg Tabs (Warfarin sodium) ..... Daily Luis Chacon MD 6mo follow up: H is updated medication list for this problem includes: Coreg 25 Mg Tabs (Carvedilol) ..... One tab. twice daily Lisinopril-hydrochlorothiazide 20-12.5 Mg Tabs (Lisinopril-hydrochlorothiazide) ..... 2 tabs a day Jantoven 3 Mg Tabs (Warfarin sodium) ..... Daily Orders: Blas KG ([id number]) Luis Chacon MD 6mo follow up: H is updated medication list for this problem includes: Coreg 25 Mg Tabs (Carvedilol) ..... One tab. twice daily Lisinopril-hydrochlorothiazide 20-12.5 Mg Tabs (Lisinopril-hydrochlorothiazide) ..... 2 tabs a day h is repeat bp was 180/100 i will have him come back a bp check in 1 week. Luis Chacon MD Follow-up, PT/INR to day: T he following medications were removed from the medication list: Digoxin 0.25 Mg Tabs (Digoxin) ..... One tab daily His updated medication list for this problem includes: Coreg 25 Mg Tabs (Carvedilol) ..... One tab. twice daily Lisinopril-hydrochlorothiazide Tabs (Lisinopril-hydrochlorothiazide tabs) ..... 1 tab po q am 20/12.5 mg Jantoven 3 Mg Tabs (Warfarin sodium) ..... 1 tablet by mouth every evening as of 12/31 Luis Chacon MD Follow-up, PT/INR to day: H is updated medication list for this problem includes: Coreg 25 Mg Tabs (Carvedilol) ..... One tab. twice daily Lisinopril-hydrochlorothiazide Tabs (Lisinopril-hydrochlorothiazide tabs) ..... 1 tab po q am 20/12.5 mg Luis Chacon MD Follow-up, PT/INR to day:inr 1.8 today T he following medications were removed from the medication list: Digoxin 0.25 Mg Tabs (Digoxin) ..... One tab daily His updated medication list for this problem includes: Coreg 25 Mg Tabs (Carvedilol) ..... One tab. twice daily Lisinopril-hydrochlorothiazide Tabs (Lisinopril-hydrochlorothiazide tabs) ..... 1 tab po q am 20/12.5 mg Jantoven 3 Mg Tabs (Warfarin sodium) ..... 1 tablet by mouth every evening as of 12/31 Orders: C omplete Echo ([id number]) H olter Monitor 24 Hr ([id number]) Luis Chacon MD Routine Office Visit : T he following medications were removed from the medication list: Coumadin Tabs (Warfarin sodium tabs) ..... 3mg daily m-sat His updated medication list for this problem includes: Coreg 25 Mg Tabs (Carvedilol) ..... One tab. twice daily Lisinopril-hydrochlorothiazide Tabs (Lisinopril-hydrochlorothiazide tabs) ..... 2 tab po q am 20/12.5 mg Jantoven 3 Mg Tabs (Warfarin sodium) ..... 1 tablet by mouth every evening Digoxin 0.25 Mg Tabs (Digoxin) ..... One tab daily BP today: 158/84 Prior BP: 152/81 (02/05/2009) H gb: 13.6 (06/02/2008) HCT: 40.3 (06/02/2008) BUN: 18 (06/02/2008) Creat: 1.15 (06/02/2008) Na+: 144 (06/02/2008) K+: 3.6 (06/02/2008) Mg++: 1.9 (06/02/2008) E chocardiogram: Normal left ventricular systolic function. Normal left ventricular size. Mild concentric left ventricular hypertrophy. Normal E/E` 12.0. Left ventricular ejection fraction is estimated at 55%. Atrial Fibrillation. T he left atrium is normal in size. Trace to mild mitral valve regurgitation. There is non-specific thickening of the mitral valve leaflets. Mild aortic valve regurgitation. There is aortic valve sclerosis and thickening. There is trace physiologic tricuspid valve regurgitation. There is non-specific thickening of the tricuspid valve. The IVC is not well visualized. Unable to adequately a ssess the RVSP. (06/10/2009) Orders: Blas KG ([id number]) Luis Chacon MD Routine Office Visit : H is updated medication list for this problem includes: Coreg 25 Mg Tabs (Carvedilol) ..... One tab. twice daily Lisinopril-hydrochlorothiazide Tabs (Lisinopril-hydrochlorothiazide tabs) ..... 2 tab po q am 20/12.5 mg BP today: 158/84 P rior BP: 152/81 (02/05/2009) Labs Reviewed: C reat: 1.15 (06/02/2008) Luis Chacon MD routine: H is updated medication list for this problem includes: Coreg 25 Mg Tabs (Carvedilol) ..... One tab. twice daily Lisinopril-hydrochlorothiazide Tabs (Lisinopril-hydrochlorothiazide tabs) ..... 2 tab po q am 20/12.5 mg Jantoven 4 Mg Tabs (Warfarin sodium) ..... One tab daily sat-sun Digoxin 0.25 Mg Tabs (Digoxin) ..... One tab daily Coumadin Tabs (Warfarin sodium tabs) ..... 3mg daily m-f BP today: 152/81 Prior BP: 123/66 (07/31/2008) P T: 25.9 (01/22/2009) INR: 2.6 (01/22/2009) H gb: 13.6 (06/02/2008) HCT: 40.3 (06/02/2008) BUN: 18 (06/02/2008) Creat: 1.15 (06/02/2008) Na+: 144 (06/02/2008) K+: 3.6 (06/02/2008) Mg++: 1.9 (06/02/2008) E chocardiogram: The left ventricular chamber size is normal. Wall thickness is increased consistent with mild concentric left ventricular hypertrophy. Normal left ventricular function. LV EF is estimated at 50%. Rythm is Atrial Fibrillation. Moderate left atrial enlargement. T he mitral valve leaflets appear (sclerotic) thickened. The aortic valve appears mildly thickened (sclerotic). (2+) Moderate mitral regurgitation. (1+) Mild aortic regurgitation. Minimal tricuspid regurgitation. (05/30/2008) Orders: H olter Monitor 24 Hr ([id number]) t o check his heart rate control through the day i will have him do a 24 hr holter. Luis Chacon MD routine: H is updated medication list for this problem includes: Coreg 25 Mg Tabs (Carvedilol) ..... One tab. twice daily Lisinopril-hydrochlorothiazide Tabs (Lisinopril-hydrochlorothiazide tabs) ..... 2 tab po q am 20/12.5 mg BP today: 152/81 P rior BP: 123/66 (07/31/2008) Labs Reviewed: C reat: 1.15 (06/02/2008) Luis Chacon MD routine: H is updated medication list for this problem includes: Coreg 25 Mg Tabs (Carvedilol) ..... One tab. twice daily Lisinopril-hydrochlorothiazide Tabs (Lisinopril-hydrochlorothiazide tabs) ..... 2 tab po q am 20/12.5 mg Jantoven 4 Mg Tabs (Warfarin sodium) ..... One tab daily sat-sun Digoxin 0.25 Mg Tabs (Digoxin) ..... One tab daily Coumadin Tabs (Warfarin sodium tabs) ..... 3mg daily m-f BP today: 152/81 Prior BP: 123/66 (07/31/2008) H gb: 13.6 (06/02/2008) HCT: 40.3 (06/02/2008) BUN: 18 (06/02/2008) Creat: 1.15 (06/02/2008) Na+: 144 (06/02/2008) K+: 3.6 (06/02/2008) Mg++: 1.9 (06/02/2008) E chocardiogram: The left ventricular chamber size is normal. Wall thickness is increased consistent with mild concentric left ventricular hypertrophy. Normal left ventricular function. LV EF is estimated at 50%. Rythm is Atrial Fibrillation. Moderate left atrial enlargement. T he mitral valve leaflets appear (sclerotic) thickened. The aortic valve appears mildly thickened (sclerotic). (2+) Moderate mitral regurgitation. (1+) Mild aortic regurgitation. Minimal tricuspid regurgitation. (05/30/2008) Orders: Gabbi omplete Echo ([id number]) Luis Chacon MD routine: H is updated medication list for this problem includes: Coreg 25 Mg Tabs (Carvedilol) ..... One tab. twice daily Lisinopril-hydrochlorothiazide Tabs (Lisinopril-hydrochlorothiazide tabs) ..... 2 tab po q am 20/12.5 mg BP today: 152/81 P rior BP: 123/66 (07/31/2008) Labs Reviewed: Gabbi reat: 1.15 (06/02/2008) Luis Chacon MD routine: H is updated medication list for this problem includes: Coreg 25 Mg Tabs (Carvedilol) ..... One tab. twice daily Lisinopril-hydrochlorothiazide Tabs (Lisinopril-hydrochlorothiazide tabs) ..... 2 tab po q am 20/12.5 mg BP today: 152/81 P rior BP: 123/66 (07/31/2008) Labs Reviewed: C reat: 1.15 (06/02/2008) Luis Chacon MD office visit: H is updated medication list for this problem includes: Coreg 25 Mg Tabs (Carvedilol) ..... One tab. twice daily Lisinopril-hydrochlorothiazide Tabs (Lisinopril-hydrochlorothiazide tabs) ..... 2 tab po q am 20/12.5 mg Jantoven 4 Mg Tabs (Warfarin sodium) ..... One tab daily Digoxin 0.25 Mg Tabs (Digoxin) ..... One tab daily BP today: 170/100 Prior BP: 170/105 (05/30/2008) P T: 25.2 (06/25/2008) INR: 2.5 (06/25/2008) H gb: 13.6 (06/02/2008) HCT: 40.3 (06/02/2008) BUN: 18 (06/02/2008) Creat: 1.15 (06/02/2008) Na+: 144 (06/02/2008) K+: 3.6 (06/02/2008) Mg++: 1.9 (06/02/2008) E chocardiogram: The left ventricular chamber size is normal. Wall thickness is increased consistent with mild concentric left ventricular hypertrophy. Normal left ventricular function. LV EF is estimated at 50%. Rythm is Atrial Fibrillation. Moderate left atrial enlargement. T he mitral valve leaflets appear (sclerotic) thickened. The aortic valve appears mildly thickened (sclerotic). (2+) Moderate mitral regurgitation. (1+) Mild aortic regurgitation. Minimal tricuspid regurgitation. (05/30/2008) Orders: Blas KG ([id number]) Luis Chacon MD office visit: H is updated medication list for this problem includes: Coreg 12.5 Mg Tabs (Carvedilol) ..... One tab. twice daily Lisinopril-hydrochlorothiazide Tabs (Lisinopril-hydrochlorothiazide tabs) ..... 2 tab po q am 20/12.5 mg BP today: 170/100 P rior BP: 170/105 (05/30/2008) Labs Reviewed: Gabbi reat: 1.15 (06/02/2008) Luis Chacon MD office visit: H is updated medication list for this problem includes: Coreg 12.5 Mg Tabs (Carvedilol) ..... One tab. twice daily Lisinopril-hydrochlorothiazide Tabs (Lisinopril-hydrochlorothiazide tabs) ..... 2 tab po q am 20/12.5 mg BP today: 170/100 P rior BP: 170/105 (05/30/2008) Labs Reviewed: C reat: 1.15 (06/02/2008) Luis Chacon MD echo prior: H is updated medication list for this problem includes: Coreg 12.5 Mg Tabs (Carvedilol) ..... One tab. twice daily Lisinopril-hydrochlorothiazide Tabs (Lisinopril-hydrochlorothiazide tabs) ..... 1 tab po Luis Chacon MD echo prior: H is updated medication list for this problem includes: Coreg 12.5 Mg Tabs (Carvedilol) ..... One tab. twice daily Lisinopril-hydrochlorothiazide Tabs (Lisinopril-hydrochlorothiazide tabs) ..... 1 tab po Orders: R enal Artery Duplex ([id number]) w ill increase the lisinopril/hctz to 2 tabs in am to try to control bp. this is still high. Luis Chacon MD surg clearance // NO MED LIST: H is updated medication list for this problem includes: Coreg 12.5 Mg Tabs (Carvedilol) ..... One tab. twice daily Lisinopril-hydrochlorothiazide Tabs (Lisinopril-hydrochlorothiazide tabs) ..... 1 tab po s econdary to a-fib. Luis Chacon MD surg clearance // NO MED LIST: H is updated medication list for this problem includes: Coreg 12.5 Mg Tabs (Carvedilol) ..... One tab. twice daily Lisinopril-hydrochlorothiazide Tabs (Lisinopril-hydrochlorothiazide tabs) ..... 1 tab po a sarina meds. Luis Chacon MD surg clearance // NO MED LIST: H is updated medication list for this problem includes: Coreg 12.5 Mg Tabs (Carvedilol) ..... One tab. twice daily Lisinopril-hydrochlorothiazide Tabs (Lisinopril-hydrochlorothiazide tabs) ..... 1 tab po T his is new and will control his rate and check hisecho and stress test. i n future he will need coumadin for prophylaxis. Luis Chacon MD Date Name Complete Echo Complete Echo Holter Monitor 24 Hr Complete Echo Holter Monitor 24 Hr Complete Echo Holter Monitor 24 Hr INR Strip ZIO Holter Complete Echo INR Strip INR Strip INR Strip INR Strip PROTHROMBIN TIME WIT H INR Holter Monitor 24 Hr Complete Echo Holter Monitor 24 Hr INR Strip Holter Monitor 24 Hr Complete Echo Holter Monitor 24 Hr Complete Echo Holter Monitor 24 Hr Complete Echo Holter Monitor 24 Hr Complete Echo COMPREHENSIVE METABO LIC PANEL W/EGFR LIPID PANEL Holter Monitor 24 Hr DIGOXIN Holter Monitor 24 Hr Complete Echo BOB - GC Complete Echo HISTORY OF PROCEDURES Procedure Date Procedure Name Provider Procedure Notes S tatus Leeroy Spencer MD complete d Leeroy Chacon MD completed Leeroy Arora MD complet ed Leeroy Pérez RN completed Leeroy Pérez RN completed Complex e/m visit add on Luis Chacon MD completed EKG Luis Chacon MD completed Leeroy Chacon MD completed Leeroy Arora MD complet ed Leeroy Arora MD complet ed Leeroy Chacon MD completed Leeroy Le MD completed Leeroy Pérez RN completed Leeroy Chacon MD completed Leeroy Chacon MD completed Alexaime Paramjit Esparza MD complete d Leeroy Spencer MD complete d Leeroy Arora MD complet ed Leeroy Chacon MD completed Leeroy Arora MD complet ed Leeroy Spencer MD complete d Leeroy Chacon MD completed Leeroy Chacon MD completed Leeroy Spencer MD complete d Leeroy Morales MD compl eted Leeroy Spencer MD complete d Leeroy Chacon MD completed Leeroy Chacon MD completed Leeroy Morales MD compl eted Leeroy Le MD completed Leeroy Chacon MD completed Leeroy Le MD completed Leeroy Arora MD complet ed Leeroy Chacon MD completed DEX Chacon MD completed Leeroy Chacon MD completed Leeroy Morales MD compl eted Leeroy Chacon MD completed Leeroy Chacon MD completed Leeroy Chacon MD completed Leeroy Spencer MD complete d Leeroy Arora MD complet ed Leeroy Chacon MD completed Leeroy Chacon MD completed Leeroy Chacon MD completed Leeroy Spencer MD complete d Leeroy Arora MD complet ed Leeroy Spencer MD complete d EKG Luis Chacon MD completed Leeroy Chacon MD completed Protime Sterling Brar RN completed Proterin Saunders MD completed Leeroy Saunders MD completed Protime Nurse .Triage completed Leeroy Chacon MD completed Leeroy Chacon MD completed Leeroy Saunders MD completed Protime Nurse .Triage completed Leeroy Spencer MD complete d Leeroy Chacon MD completed EKG Nurse .Triage completed Leeroy Chacon MD completed Protime Nurse .Triage completed Leeroy Arora MD complet ed Leeroy Chacon MD completed Leeroy Chacon MD completed Protime Nurse .Triage completed Protime Nurse .Triage completed Leeroy Arora MD complet ed Leeroy Le MD completed Leeroy Saunders MD completed Leeroy Spencer MD complete d Leeroy Spencer MD complete d Leeroy Spencer MD complete d Leeroy Spencer MD complete d Leeroy Chacon MD completed Leeroy Arora MD complet ed Leeroy Chacon MD completed Leeroy Chacon MD completed Leeroy Chacon MD completed Protime Tonsha Rivers completed Protime Mick Saunders MD completed Alexaime Luis Chacon MD completed Leeroy Chacon MD completed Alexaime Luis Chacon MD completed Chantal, 24 or 48 Luis Chacon MD com pleted Protime Manjinder Spencer MD complete d Protime Luis Chacon MD completed DEX Chacon MD completed Alexaime Luis Chacon MD completed Protime Manjinder Spencer MD complete d Protime Kenisha sterling MD completed Alexaime Luis Chacon MD completed Protime Shay Le MD completed Protime Manjinder Spencer MD complete d Protime Luis Chacon MD completed Alexaime Luis Chacon MD completed Alexaime Luis Chacon MD completed Protime Manjinder Spencer MD complete d Leeroy Spencer MD complete d Alexaime Shya Le MD completed Protime Paramjit Esparza MD complete d BRENDEN Chacon MD co mpleted DEX Chacon MD completed Alexaime Luis Chacon MD completed Alexaime Luis Chacon MD completed Alexaime Luis Chacon MD completed Alexaime Luis Chacon MD completed Leeroy Chacon MD completed Leeroy Chacon MD completed Leeroy Chacon MD completed Alexaime Luis Chacon MD completed Leeroy Chacon MD completed Leeroy Chacon MD completed SNOMED-CT: [id number] Physical Exam, Performed: Pulse Exam of Foot Luis Chacon MD completed EKG Luis Chacon MD completed SNOMED-CT: [id number] Current Medications Documented Luis Chacon MD completed Leeroy Chacon MD completed Leeroy Chacon MD completed Leeroy Chacon MD completed Leeroy Chacon MD completed Leeroy Chacon MD completed SATYA Chacon MD completed Leeroy Chacon MD completed Leeroy Chacon MD completed Leeroy Chacon MD completed Leeroy Chacon MD completed SATYA Chacon MD completed Leeroy Chacon MD completed Leeroy Chacon MD completed SNOMED-CT: [id number] Physical Exam, Performed: Pulse Exam of Foot Luis Chacon MD completed EKG Luis Chacon MD completed SNOMED-CT: [id number] Current Medications Documented Luis Chacon MD completed Leeroy Chacon MD completed SATYA Chacon MD completed SATYA Chacon MD completed Leeroy Chacon MD completed Leeroy Chacon MD completed Leeroy Chacon MD completed Leeroy Chacon MD completed Leeroy Chacon MD completed Leeroy Chacon MD completed Leeroy Chacon MD completed Leeroy Chacon MD completed Leeroy Chacon MD completed Leeroy Chacon MD completed EKG Luis Chacon MD completed EKG Luis Chacon MD completed EKG Luis Chacon MD completed ePrescribe - Check t his box if eRx is used Luis Chacon MD completed EKG Luis Chacon MD completed EKG Luis Chacon MD completed EKG Luis Chacon MD completed EKG Luis Chacon MD completed EKG Sterling Brar RN completed EKG Luis Chacon MD completed
--- OUTSIDE RECORDS SUMMARY | 2024-11-04 16:01 | XMS_ITS | Continuity of Care Document ---
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 Role Phone [facility] Unavailable Unavail able Beti Alberto Unavailable Unavailable Procedures Procedure Date Anti-reflective Coating Progressive Lens, Plastic Progressive Lens, Plastic Frames Deluxe Anti-reflective Coating Tint Photochromatic, Plastic Tax - Medical Post-op Follow-up Visit After Cataract Laser Surgery Eye Exam Established Pt Advance Directives Directive Yes / No Effective Date File Name No Information Encounters Encounter Description Practice Location Reason(s) For Visit Diagnoses Date Provider Providers Copied on Encounter [facility], [address] [place] [address] [address], [place], [place], [id number], [place] tel:[phone] [facility] No Information 1 8 [facility] . [address], [address], [place], [place], [id number], [place]. tel:[phone] Consulting Provider: Beti Alberto, [address] [place] [address], [address]. tel:[phone] [facility], [address] [place] [address] [address], [place], [place], [id number], [place] tel:[phone] [facility] No Information 7-200 7 [facility] . [address], [address], [place], [place], [id number], [place]. tel:[phone] Consulting Provider: Beti Alberto, [address] [place] [address], [facility]. tel:[phone] [facility], [address], [place], [place], [id number], [place] tel:[phone] [facility] No Information 2-200 7 [facility] . [address], [address], [place], [place], [address], [place]. tel:[phone] Referring Provider: Phyllis Murphy, [address], [place], [place], [facility]. tel:[phone] lting Provider: Beti Alberto, [address] [place] [address], [facility]. tel:[phone] [facility], [address], [place], [place], [address], [place] tel:[phone] [facility] No Information 2 0-200 7 Elidia Johnson [address] , [address], [place], [place], [facility], [place]. tel:[phone] [facility], [address], [place], [place], [id number], [place] tel:[phone] [facility] No Information 8-200 7 Elidia Johnson [address] , [address], [place], [place], [facility], [place]. tel:[phone] [facility], [address], [place], [place], [id number], [place] tel:[phone] [facility] No Information Sterling-0 9-200 7 Elidia Ferguson. [address] , [address], [place], [address], [place]. tel:[phone] Family History Family Member Type Diagnosis Age At Onset No Information Payers Payer name Insurance type Covered constitution party ID Authoriza tion(s) No Information Social History Type Description Quantity Date Captured Comments Sex Male Smoking Status No Information Chief Complaint And Reason For Visit No Information Reason For Referral Reason For Referral No Information History Of Present Illness Encounter Date Complaint History Of Prese nt Illness No Information Functional Status Date Functional Assessmen t No Information Instructions Date Instruction Additional Infor mation No Information Assessments Type Assessment Date No Information Patient Care Teams Name Effective Dates (start - stop) Status Members No Information
== END 2024-11-04 13:47 | disposition home or self-care (01) ==
LOC: ANHLAB 13:54
PROVIDERS: PCP Family Medicine; Visit Provider Nurse Practitioner Family
DX: M10.9 Gout, unspecified (principal); R60.0 Localized edema; M19.071 Primary osteoarthritis, right ankle and foot
CPT/HCPCS: 36415; 73620; 84550